=== PATIENT | female | born 1995 | race Caucasian/White ===

== ENCOUNTER 2016-12-07 23:29 | Emergency (ER) | payer SELFPAY ==
[~2016-12-07] VITALS: Ht 162.6 cm; Wt 81.6 kg
[~2016-12-07 23:29] MED LIST: AGM875T PO; CEPH250T PO; CEPH500C PO; CRAN1TAB PO; DCS100C PO; FRS325T PO; HYDR-3454 PO; HYDR-757 PO; HYOS0.3710 PO; IBP800T PO; Ibuprofen PO; LORA10CA PO; NAPR-243 PO; NITR-65 PO; ONDA-43 PO; PREN1COM11 PO; PREN1TAB39 PO; PROP1TAB77 PO; TRAM50TA2 PO
--- OUTSIDE RECORDS SUMMARY | 2016-12-07 23:36 | XMS REPORT | Continuity of Care Document ---
Author Author [facility] Organization [facility] Address Unknown Phone Unavailable Care Team Providers Care Pipe Installer Name Role Phone DODIE MIRANDA MD PCP Insurance Providers Payer Name Policy Number Subscriber Name Relationship Unknown Robin Green 19 Self / Same As Patient Advance Directives Directive Response Recorded Date/Time Advance Directives No 03/29/16 10:22pm Health Care Power of Global Program Director No 03/29/16 10:22pm Organ Donor No 03/29/16 10:22pm Resuscitation Status Full Code 03/29/16 10:22pm Chief Complaint and Reason for Visit Chief Complaint -Female Reason for Visit [id number] test positive Problems Active Problems Medical Problem Onset Date Status Abdominal pain in Unknown Acute Abdominal pain in Unknown Acute Constipation Unknown Acute Fracture of distal fibula Unknown Acute Fracture of distal fibula Unknown Acute Left ankle pain Unknown Acute test positive Unknown Acute UTI Unknown Acute Upper respiratory infection Unknown Acute Urinary tract infection in Unknown Acute Uterine bleeding Unknown Acute Medications No known medications. Social History Social History Problem Response Recorded Date/Time Alcohol Use Denies Use 03/29/2016 10:22pm Recreational Drug Use No 03/29/2016 10:22pm Recent Foreign Travel No 03/18/2014 5:12pm Recent Infectious Disease Exposure No 03/18/2014 5:12pm Hospitalization with Isolation Denies 03/18/2014 5:12pm Sexually Transmitted Disease No 03/29/2016 10:22pm HIV/AIDS No 03/29/2016 10:22pm Smoking Status Never a Smoker 03/29/2016 10:22pm Do you dip or chew tobacco? No 03/29/2016 10:22pm Query Response Start Date Stop Date Smoking Status Never a Smoker Hospital Discharge Instructions No hospital discharge instructions. Plan of Care Discharge Date 03/29/16 11:47pm Disposition 01 HOME, SELF-CARE Condition at Discharge Stable Instructions/Education Provided Threatened Miscarriage (ED) Prescriptions See Medication Section Referrals DODIE MIRANDA MD - Primary Care Physician Additional Instructions/Education See your doctor or return here Wednesday or Wednesday for repeat hCG level. Return sooner for significant abdominal pain, heavy vaginal bleeding, passing out or other worrisome symptoms. All discharge instructions reviewed with patient and/or family. Voiced understanding. Functional Status No functional status results. Allergies, Adverse Reactions, Alerts Allergen Type Severity Reaction Status Last Updated [id number] (GRAPE JUICE) Allergy Mild Active 03/25/09 Immunizations Name Given Type Date of Influenza Vaccine 06/20/12 Historical Tetanus Booster (TDap) Unknown Historical Vital Signs Acute Vital Signs Vital Response Date/Time Temperature (Fahrenheit) 98.2 degrees F (97.6 - 99.5) 03/29/2016 11:47pm Temperature (Calculated Celsius) 36.71752 degrees C (36.4 - 37.5) 03/29/2016 11:47pm Temperature Source Temporal 03/29/2016 11:47pm Pulse Rate (Adolescent 12-19yrs) 87 bpm (56 - 106) 03/29/2016 11:47pm O2 Sat by Pulse Oximetry 98 % (88 - 100) 03/29/2016 11:47pm Respiratory Rate (Adolescent 12-19yrs) 18 bpm (15 - 20) 03/29/2016 11:47pm Blood Pressure / Blood Pressure Systolic (Adolescent 12-19yrs) 108 mm Hg (115 - 120) 2015 11:47pm Pain Numeric Pain Scale 0-No Pain 03/29/2016 11:47pm Height (Feet) 5 feet 03/29/2016 10:22pm Height (Inches) 4 inches 03/29/2016 10:22pm Height (Calculated Centimeters) 162.124812 cm 03/29/2016 10:22pm Weight (Pounds) 196 pounds 03/29/2016 10:22pm Weight (Ounces) 6.0 oz 03/29/2016 10:22pm Weight (Calculated Grams) 93646.203 gm 03/29/2016 10:22pm Weight (Calculated Kilograms) 89.938400 kilograms 03/29/2016 10:22pm Calculated BMI 33.64 03/29/2016 10:22pm Results No known relevant diagnostic tests, laboratory data and/or discharge summary. Procedures No known history of procedures. Encounters Encounter Location Arrival/Admit Date Discharge/Depart Date Attending Provider Departed Emergency Room [facility] 03/29/16 9:59pm 03/29 11:47pm OLGA CALERO MD Recent Diagnosis
[2016-12-07] MEDS ORDERED: FAMOTIDINE 20 MG (PEPCID) TABLET PO STA (23:57)
[2016-12-08] MEDS ORDERED: ANTACID SUSP 30 ML UDC (MYLANTA) PO ONE
[2016-12-08] MEDS ORDERED: LIDOCAINE 2% VISCOUS 15 ML UDC PO ONE
[2016-12-08 00:16] LABS: BASOPHILS % (AUTO) 1 % (0-10); EOSINOPHILS # (AUTO) 0.2 10^3/uL (0.0-0.3); EOSINOPHILS % (AUTO) 2 % (0-10); LYMPHOCYTES % (AUTO) 37 % (12-44); MEAN CORPUSCULAR HEMOGLOBIN 29 PG (25-34); MEAN CORPUSCULAR HGB CONC 33 G/DL (32-36); MEAN CORPUSCULAR VOLUME 87 FL (80-99); MONOCYTES # (AUTO) 0.5 X 10^3 (0.0-1.0); MONOCYTES % (AUTO) 6 % (0-12); NEUTROPHILS # (AUTO) 4.4 X 10^3 (1.8-7.8); NEUTROPHILS % (AUTO) 54 % (42-75); PLATELET COUNT 238 10^3/uL (130-400); RED BLOOD COUNT 3.97 10^6/uL (4.35-5.85); WHITE BLOOD COUNT 8.1 10^3/uL (4.3-11.0)
[2016-12-08 00:42] LABS: ALANINE AMINOTRANSFERASE 12 U/L (0-55); ALBUMIN 3.9 G/DL (3.2-4.5); AMYLASE 66 U/L (25-125); ANION GAP 11 MMOL/L (5-14); ASPARTATE AMINO TRANSFERASE 13 U/L (5-34); BILIRUBIN,TOTAL 0.1 MG/DL (0.1-1.0); BLOOD UREA NITROGEN 21 MG/DL (7-18); BUN/CREATININE RATIO 18; CALCIUM 8.9 MG/DL (8.5-10.1); CARBON DIOXIDE 24 MMOL/L (21-32); CHLORIDE 105 MMOL/L (98-107); CREATININE SERUM 1.15 MG/DL (0.60-1.30); GFR ESTIMATED 60; GLUCOSE 102 MG/DL (70-105); LIPASE 30 U/L (8-78); POTASSIUM 3.5 MMOL/L (3.6-5.0); SODIUM 140 MMOL/L (135-145); TOTAL PROTEIN 6.4 G/DL (6.4-8.2)
[2016-12-08 00:50] LABS: TROPONIN I < 0.30 NG/ML (<0.30)
--- NOTE | 2016-12-08 02:06 | ED GI ---
General Chief Complaint: Cardiac/General Problems Stated Complaint: CHEST PAIN Nursing Triage Note: Pt. advises for several months she has been experiencing burning pain that begins in her stomach and moves up into her chest. Pt. advises she has tried over the counter antacids and has not had any relief. Sepsis Screen: No Definite Risk Source of Information: Patient Exam Limitations: No Limitations History of Present Illness Time Seen By Provider: 01:30 Initial Comments Here with report of central chest pain that starts in the epigastric region and radiates upward as well as radiates backward. States that it feels sharp and burning. It definitely happens with some fluids and sometimes just happens on its own. She has tried [id number] medicines without relief. She has been experiencing this on and off for several months but it seems to be more frequent recently. Denies vomiting or diarrhea but does have some nausea occasionally with these episodes. Timing/Duration: 1 Week, Intermittent Severity/Quality: Moderate, Burning, Sharp Location: Epigastric Radiation: Back, Chest Activities at Onset: None Modifying Factors: Improves With Antacids, Worsens With Eating Associated Symptoms: No Fever/Chills, No Shortness of Air, No Weakness Allergies and Home Medications Allergies Uncoded Allergies: [id number] (GRAPE JUICE) (Allergy, Mild, 03/25/09) Home Medications No Active Prescriptions or Reported Meds Review of Systems Constitutional: see HPINo chills, No fever EENTM: No Symptoms Reported Respiratory: No Symptoms Reported Cardiovascular: See HPI Gastrointestinal: See HPI NauseaDenies Vomiting Genitourinary: No Symptoms Reported Musculoskeletal: no symptoms reported All Other Systems Reviewed Negative Unless Noted: Yes Past Xirppyw-Rnqyga-Quxmly Hx Patient Social History Alcohol Use: Denies Use Recreational Drug Use: No Smoking Status: Never a Smoker Recent Foreign Travel: No Contact w/Someone Who Travel: No Recent Infectious Disease Expo: No Recent Hopitalizations: No Immunizations Up To Date Tetanus Booster (TDap): Unknown Date of Influenza Vaccine: Jun 20, 2012 Seasonal Allergies Seasonal Allergies: No Surgeries HX Surgeries: Yes (EGD, BILAT KNEE SCOPES) Surgeries: Gallbladder, Orthopedic Respiratory Hx Respiratory Disorders: No Cardiovascular Hx Cardiac Disorders: No Neurological Hx Neurological Disorders: No Reproductive System Hx Reproductive Disorders: No Sexually Transmitted Disease: No HIV/AIDS: No Female Reproductive Disorders: Denies Genitourinary Hx Genitourinary Disorders: No Gastrointestinal Hx Gastrointestinal Disorders: Yes Gastrointestinal Disorders: Hiatal Hernia Musculoskeletal Hx Musculoskeletal Disorders: Yes Musculoskeletal Disorders: Fractures Endocrine Hx Endocrine Disorders: No HEENT HX ENT Disorders: No Cancer Hx Cancer: No Psychosocial Hx Psychiatric Problems: No Integumentary HX Skin/Integumentary Disorder: No Blood Transfusions Hx Blood Disorders: No Reviewed Nursing Assessment Reviewed/Agree w Nursing PMH: Yes Family Medical History Significant Family History: No Pertinent Family Hx Family Medial History: Patient reports no known family medical history. Physical Exam Vital Signs VS - Last 72 Hours, by Label 12/07/16 23:46 Temp 98.6 Pulse 98 Resp 14 B/P 122/76 Pulse Ox 98 O2 Delivery Room Air Capillary Refill : Less Than 3 Seconds General Appearance: WD/WN no apparent distress HEENT: PERRL/EOMI pharynx normal Neck: full range of motion supple Respiratory: lungs clear normal breath sounds Cardiovascular: regular rate, rhythm no murmur Gastrointestinal: non tender soft Extremities: non-tender normal inspection Back: normal inspection no CVA tenderness no vertebral tenderness Neurologic/Psychiatric: alert oriented x 3 Skin: normal color warm/dry Focused Exam Lactic Acid Level Laboratory Tests Test 12/08/16 00:08 Alanine Aminotransferase (ALT/SGPT) 12U/L (0-55) Albumin 3.9G/DL (3.2-4.5) Alkaline Phosphatase 40U/L (40-136) Amylase Level 66U/L (25-125) Anion Gap 11MMOL/L (5-14) Aspartate Amino Transf (AST/SGOT) 13U/L (5-34) BUN/Creatinine Ratio 18 Blood Urea Nitrogen 21MG/DL (7-18) H Calcium Level 8.9MG/DL (8.5-10.1) Carbon Dioxide Level 24MMOL/L (21-32) Chloride Level 105MMOL/L (98-107) Creatinine 1.15MG/DL (0.60-1.30) Estimat Glomerular Filtration Rate 60 Glucose Level 102MG/DL (70-105) Lipase 30U/L (8-78) Potassium Level 3.5MMOL/L (3.6-5.0) L Serum Test, Qualitative NEGATIVE (NEGATIVE) Sodium Level 140MMOL/L (135-145) Total Bilirubin 0.1MG/DL (0.1-1.0) Total Protein 6.4G/DL (6.4-8.2) Troponin I < 0.30NG/ML (<0.30) Progress/Results/Core Measures Results/Orders Lab Results Laboratory Tests Test 12/08/16 00:08 Range/Units Alanine Aminotransferase (ALT/SGPT) 12 0-55 U/L Albumin 3.9 3.2-4.5 G/DL Alkaline Phosphatase 40 40-136 U/L Amylase Level 66 25-125 U/L Anion Gap 11 5-14 MMOL/L Aspartate Amino Transf (AST/SGOT) 13 5-34 U/L BUN/Creatinine Ratio 18 Basophils # (Auto) 0.0 0.0-0.1 10^3/uL Basophils (%) (Auto) 1 0-10 % Blood Urea Nitrogen 21 H 7-18 MG/DL Calcium Level 8.9 8.5-10.1 MG/DL Carbon Dioxide Level 24 21-32 MMOL/L Chloride Level 105 98-107 MMOL/L Creatinine 1.15 0.60-1.30 MG/DL Eosinophils # (Auto) 0.2 0.0-0.3 10^3/uL Eosinophils (%) (Auto) 2 0-10 % Estimat Glomerular Filtration Rate 60 Glucose Level 102 70-105 MG/DL Hematocrit 35 35-52 % Hemoglobin 11.6 11.5-16.0 G/DL Lipase 30 8-78 U/L Lymphocytes # (Auto) 3.0 1.0-4.0 X 10^3 Lymphocytes (%) (Auto) 37 12-44 % Mean Corpuscular Hemoglobin 29 25-34 PG Mean Corpuscular Hemoglobin Concent 33 32-36 G/DL Mean Corpuscular Volume 87 80-99 FL Mean Platelet Volume 11.0 H 7.4-10.4 FL Monocytes # (Auto) 0.5 0.0-1.0 X 10^3 Monocytes (%) (Auto) 6 0-12 % Neutrophils # (Auto) 4.4 1.8-7.8 X 10^3 Neutrophils (%) (Auto) 54 42-75 % Platelet Count 238 130-400 10^3/uL Potassium Level 3.5 L 3.6-5.0 MMOL/L Red Blood Count 3.97 L 4.35-5.85 10^6/uL Red Cell Distribution Width 12.0 10.0-14.5 % Serum Test, Qualitative NEGATIVE NEGATIVE Sodium Level 140 135-145 MMOL/L Total Bilirubin 0.1 0.1-1.0 MG/DL Total Protein 6.4 6.4-8.2 G/DL Troponin I < 0.30 <0.30 NG/ML White Blood Count 8.1 4.3-11.0 10^3/uL My Orders Orders-KALYN CEVALLOS MD Amylase (12/07/16 23:57) Cbc With Automated Diff (12/07/16 23:57) Comprehensive Metabolic Panel (12/07/16 23:57) Lipase (12/07/16 23:57) Troponin I (12/07/16 23:57) Lidocaine 2% Viscous 15 Ml (Xylocaine Vi (12/08/16 00:00) Famotidine Tablet (Pepcid Tablet) (12/07/16 23:57) Antacid Suspension (Mylanta Suspension (12/08/16 00:00) Hcg,Qualitative Serum (12/07/16 23:57) Medications Given in ED Current Medications Medications Dose Ordered Sig/Kiarra Route Start Time Stop Time Status Last Admin Dose Admin Al Hydrox/Mg Hydrox/Simethicone 30 ml ONCE ONCE PO 12/08/16 00:00 12/08/16 00:01 DC 12/08/16 00:09 30 ML Lidocaine HCl 15 ml ONCE ONCE PO 12/08/16 00:00 12/08/16 00:01 DC 12/08/16 00:09 15 ML Vital Signs/I&O Vital Sign - Last 12Hours 12/07/16 23:46 Temp 98.6 Pulse 98 Resp 14 B/P 122/76 Pulse Ox 98 O2 Delivery Room Air Blood Pressure Mean: 91 Progress Note : Progress Note Seen and evaluated. Labs and EKG ordered. Pepcid 20 mg by mouth and GI cocktail given. This did resolve her pain completely. No acute findings. Discharged home with return precautions. Patient verbalize understanding instructions and agreement with plan. ECG Initial ECG Impression Date: Dec 07, 2016 Initial ECG Impression Time: 23:52 Initial ECG Rate: 90 Initial ECG Rhythm: Normal Sinus Initial ECG Comparisson: No Previous ECG Available Comment Sinus rhythm with normal axis. No evidence of ST elevation AK. No previous available for comparison. Interpreted by me. Departure Impression Impression: Primary Impression: Gastroesophageal reflux disease Qualified Code: K21.9 - Gastro-esophageal reflux disease without esophagitis Disposition: 01 HOME, SELF-CARE Condition: Improved Departure-Patient Inst. Decision time for Depature: 02:04 Referrals: DODIE MIRANDA MD (PCP/Family) Primary Care Physician Patient Instructions: Acid Reflux (Gastroesophageal Reflux Disease), Adult (DC) , Chest Pain (DC) Add. Discharge Instructions: All discharge instructions reviewed with patient and/or family. Voiced understanding. You may take omeprazole 20 mg daily for 14 days. You may purchases over-the- counter in a 14 day pack. You may repeat this 2 more times as needed. You should wait 1 week between each 14 day pack. Follow-up with your doctor for recheck and further evaluation. Return for worse pain, fever, vomiting, weakness, breathing problems or other concerns as needed. Scripts No Active Prescriptions or Reported Meds Copy Copies To 1: DODIE MIRANDA MD, TIMOTHY D MD Dec 08, 2016 02:06
[2016-12-08 02:11] VITALS: BP 108/63
== END 2016-12-08 02:08 | disposition home or self-care (01) ==
LOC: EDUNIT# 23:29 → ER 23:33
DX: K21.9 Gastro-esophageal reflux disease without esophagitis (principal)
CPT/HCPCS: 36415; 80053; 82150; 83690; 84484; 84703; 85025; 93005

== ENCOUNTER → 2017-03-06 | Emergency (ER) | payer SELFPAY ==
[~2017-03-06] VITALS: Ht 167.6 cm; Wt 72.6 kg
--- NOTE | 2017-03-06 20:37 | ED GU-Female ---
General Chief Complaint: -Female Stated Complaint: POSS PG ANTIBODIES ISSUE Nursing Triage Note: Pt states took preg test approx 3 hours ago, pt verbalized she had miscarriage approx 1 yr ago and was told to go to physician for "shot" since she doesn't have a medical card Nursing Sepsis Screen: No Definite Risk Source: patient History of Present Illness Time seen by provider: 20:20 Initial Comments PT STATES SHE IS HERE "TO CONFIRM " SO SHE CAN GET BACK ON MEDICAID PT'S LMP WAS 02/06/17 AND WAS NORMAL. NO CONTROL HAD + HOME TESTS X 2 TONIGHT AT 1700 AND 1840 PT STATES SHE WAS TOLD IF SHE GOT AGAIN SHE SHOULD "IMMEDIATELY GET CHECKED FOR ANTIBODIES" AFTER SHE HAD A MISCARRIAGE A YEAR AGO AT 6 WEEKS--PT'S BLOOD TYPE IS B NEGATIVE PER OLD RECORDS PT IS AB 1--NO D&C REQUIRED PT IS NOT HAVING ANY SYMPTOMS--INITIALLY DENIED HAVING ANY PROBLEMS AT ALL, THEN LATER STATES SHE "SPOTTED ONCE" EARLIER TODAY--BLOOD ON TISSUE WITH WIPING , AND HAD A SMALL CLOT, BUT HAS NOT HAD ANY SINCE THEN. DID NOT USE ANY PADS NO PAIN PCP: DR. MIRANDA Allergies and Home Medications Allergies Uncoded Allergies: [id number] (GRAPE JUICE) (Allergy, Mild, 03/25/09) Home Medications No Active Prescriptions or Reported Meds Constitutional: no symptoms reported Respiratory: no symptoms reported Cardiovascular: no symptoms reported Gastrointestinal: no symptoms reported Genitourinary: see HPI LMP: February 06, 2017 Musculoskeletal: no symptoms reported Skin: no symptoms reported Psychiatric/Neurological: No Symptoms Reported Endocrine: No Symptoms Reported Hematologic/Lymphatic: No Symptoms Reported Past Gxwwnrp-Gosshk-Wwlwfd Hx Patient Social History Alcohol Use: Denies Use Recreational Drug Use: No Smoking Status: Never a Smoker Recent Foreign Travel: No Contact w/Someone Who Travel: No Recent Infectious Disease Expo: No Recent Hopitalizations: No Immunizations Up To Date Tetanus Booster (TDap): Unknown Date of Influenza Vaccine: Jun 20, 2012 Seasonal Allergies Seasonal Allergies: No Surgeries HX Surgeries: Yes (EGD, BILAT KNEE SCOPES) Surgeries: Gallbladder, Orthopedic Respiratory Hx Respiratory Disorders: No Cardiovascular Hx Cardiac Disorders: No Neurological Hx Neurological Disorders: No Reproductive System Hx : 4 Hx Para: 2 Hx Total # of Abortions (Spona: 1 Hx Reproductive Disorders: No Sexually Transmitted Disease: No HIV/AIDS: No Female Reproductive Disorders: Denies Genitourinary Hx Genitourinary Disorders: No Gastrointestinal Hx Gastrointestinal Disorders: Yes Gastrointestinal Disorders: Hiatal Hernia Musculoskeletal Hx Musculoskeletal Disorders: Yes Musculoskeletal Disorders: Fractures Endocrine Hx Endocrine Disorders: No HEENT HX ENT Disorders: No Cancer Hx Cancer: No Psychosocial Hx Psychiatric Problems: No Integumentary HX Skin/Integumentary Disorder: No Blood Transfusions Hx Blood Disorders: No Family Medical History Family Medial History: Patient reports no known family medical history. 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 nml as tested, no motor/sensory deficits, alert, normal mood/affect, oriented x 3 Skin: normal color, warm/dry Progress/Results/Core Measures Results/Orders Lab Results Laboratory Tests Test 03/06/17 20:47 Range/Units Human Chorionic Gonadotropin, Quant 507 H <5 MIU/ML My Orders Orders - STEFANY MARQUEZ DO Hcg,Quantitative (03/06/17 20:31) Rh Immune Globulin (03/06/17 21:34) Rhogam Administration (03/06/17 21:34) Vital Signs/I&O Vital Sign - Last 12Hours 03/06/17 03/06/17 20:02 22:23 Temp 97.9 97.9 Pulse 72 72 Resp 20 20 B/P (MAP) 116/72 Pulse Ox 98 98 O2 Delivery Room Air Blood Pressure Mean: 87 Departure Impression Impression: Primary Impression: Rh negative status during in first trimester Additional Impression: Spotting affecting in first trimester Disposition: 01 HOME, SELF-CARE Condition: Stable Departure-Patient Inst. Referrals: DODIE MIRANDA MD (PCP/Family) Primary Care Physician Patient Instructions: Bleeding With (DC), How to Plan and Prepare for a Healthy , in Rh-Negative Women, SPOTTING IN EARLY Add. Discharge Instructions: OVER THE COUNTER VITAMINS LOTS OF CLEAR LIQUIDS KEEP AN ACCURATE PAD COUNT--RETURN TO ER IF SOAKING MORE THAN 2 MAXI PADS AN HOUR FOR MORE THAN 2 [address]LLOW UP WITH DR. MIRANDA NEXT WEEK FOR FURTHER CARE All discharge instructions reviewed with patient and/or family. Voiced understanding. Scripts No Active Prescriptions or Reported Meds STEFANY MARQUEZ DO Mar 06, 2017 20:37
[2017-03-06 22:23] VITALS: BP 116/72
== END | disposition home or self-care (01) ==
LOC: EDUNIT# 19:48 → ER 19:53
DX: O26.851 Spotting complicating pregnancy, first trimester (principal); O26.891 Other specified pregnancy related conditions, first trimester; Z87.59 Personal history of other complications of pregnancy, childbirth and the puerperium
CPT/HCPCS: 36415; 84702; 96372; 99282

== ENCOUNTER → 2017-03-30 | Outpatient (CLI) | payer MEDICAID ==
--- NOTE | 2017-03-30 13:15 | Diagnostic Imaging Report ---
First trimester OB ultrasound. INDICATION: Dating. FINDINGS: There is a normal-appearing single intrauterine . An embryo is seen with cardiac activity at 155 beats per minute. The crown-rump length is at 7 weeks and 5 days. FRITZ is 11/11/17. The left ovary is obscured by bowel gas. The right ovary is the 3.1 x 2.5 x 1.5 CM in size and appears unremarkable.. IMPRESSION: Live single intrauterine . Dictated by: Dictated on workstation # [id number]
== END ==
LOC: RAD 12:33
PROVIDERS: ATTEND Family Medicine
DX: Z36 Encounter for antenatal screening of mother (principal); Z3A.01 Less than 8 weeks gestation of pregnancy
CPT/HCPCS: 76801

== ENCOUNTER → 2017-06-29 | Outpatient (CLI) | payer MEDICAID ==
--- NOTE | 2017-06-29 11:41 | Diagnostic Imaging Report ---
INDICATION: survey. TECHNIQUE: Multiple real-time grayscale images were obtained over the gravid uterus. COMPARISON: 03/30/2017 FINDINGS: There is a single living intrauterine in a cephalic presentation. There is normal volume of the amniotic fluid. Placenta is anterior. There is no previa. The anatomical survey is unremarkable. The heart rate is 140 beats per minute and regular. The biometry correlates with gestational age of 21 weeks one day. IMPRESSION: 1. Single living intrauterine with sonographically estimated gestational age of 21 weeks 1 day and estimated date of confinement 11/08/2017. 2. The anatomical survey was unremarkable. Cord insertion however was not well seen due to position. Biometrical measurements are as follows: Biparietal 4.9 cm, age 21 weeks 0 days. Head circumference 18.6 cm, age 21 weeks 0 days. Abdominal circumference 15.8 cm, age 21 weeks 0 days. Femur length 3.5 cm, age 21 weeks 1 days. Sonographic estimate age: 21 weeks 1 days. Sonographic estimated date of delivery: 11/08/16. Estimated Weight: 390 gm (+/- 57 gm). LMP percentile: 60%. heart rate: 140 beats per minute. number: 1 of 1. Dictated by: Dictated on workstation # [id number]
== END ==
LOC: RAD 09:28
PROVIDERS: ATTEND Family Medicine
DX: Z36.87 Encounter for antenatal screening for uncertain dates (principal); Z3A.21 21 weeks gestation of pregnancy
CPT/HCPCS: 76805

== ENCOUNTER 2017-10-13 13:14 | Outpatient (CLI) | payer MEDICAID ==
[~2017-10-13] VITALS: Ht 162.6 cm; Wt 90.7 kg
[2017-10-13 13:27] VITALS: BP 115/61
[2017-10-13] MEDS ORDERED: PREN1TAB86 PO (14:19)
[2017-10-13 14:28] VITALS: BP 108/58
[2017-10-13] MEDS ORDERED: LACTATED RINGERS 1,000 ML IV ONE (14:30)
[2017-10-13 15:53] VITALS: BP 110/69
[2017-10-13] MEDS ORDERED: TERBUTALINE INJ 1 MG/ML (BRETHINE) AMP SC ONE (16:30)
[2017-10-13 17:35] VITALS: BP 115/65
[2017-10-13 18:35] VITALS: BP 115/65
[2017-10-13] MEDS ORDERED: INFLUENZA TRIvalent 2017-2018 0.5 ML/45 MCG SYR IM ONE (20:15)
--- NOTE | 2017-10-14 08:34 | Physician Query-Final Dx ---
EVER TRAN 10/14/17 0833: Clinic Account Progress/Dx Physician Query: Please give diagnosis Date of Service Oct 13, 2017 at 13:14 DODIE MIRANDA MD 10/18/17 0716: Clinic Account Progress/Dx DIAGNOSIS: Diagnosis 1. Uterine irritability, non-labor 2. IUP at 35 weeks EVER TRAN Oct 14, 2017 08:33 DODIE MIRANDA MD Oct 18, 2017 07:16
== END 2017-10-13 18:35 | disposition home or self-care (01) ==
LOC: WSo 13:14 → LDRP 13:15 → WSo 18:35
PROVIDERS: ATTEND Family Medicine
DX: O62.4 Hypertonic, incoordinate, and prolonged uterine contractions (principal); Z3A.35 35 weeks gestation of pregnancy
CPT/HCPCS: 87070; 96360; 96361; 96372; 99214

== ENCOUNTER 2017-10-15 12:43 | Outpatient (CLI) | payer MEDICAID ==
[~2017-10-15 12:43] MED LIST changes: +PREN1TAB86 PO
--- NOTE | 2017-10-18 14:10 | Physician Query-Final Dx ---
CRISTHIAN TRINH 10/18/17 1409: Clinic Account Progress/Dx Physician Query: Please give diagnosis Date of Service Oct 15, 2017 at 12:43 DODIE MIRANDA MD 10/26/17 0736: Clinic Account Progress/Dx DIAGNOSIS: Diagnosis 1. IUP in 3rd trimester 2. Rh negative CRISTHIAN TRINH Oct 18, 2017 14:09 DODIE MIRANDA MD Oct 26, 2017 07:36
== END 2017-10-15 13:46 | disposition home or self-care (01) ==
LOC: WSo 12:43
PROVIDERS: ATTEND Family Medicine
DX: O36.0130 Maternal care for anti-D [Rh] antibodies, third trimester, not applicable or unspecified (principal)
CPT/HCPCS: 96372

== ENCOUNTER 2017-10-27 15:47 | Outpatient (CLI) | payer MEDICAID ==
[~2017-10-27] VITALS: Ht 162.6 cm; Wt 93.0 kg
[2017-10-27 16:05] VITALS: BP 120/64
[2017-10-27] MEDS ORDERED: INFLUENZA TRIvalent 2017-2018 0.5 ML/45 MCG SYR IM ONE (16:45)
--- NOTE | 2017-11-05 17:46 | Physician Query-Final Dx ---
EVER TRAN 11/05/17 1746: Clinic Account Progress/Dx Physician Query: Please give diagnosis Date of Service Oct 27, 2017 at 15:47 DODIE MIRANDA MD 11/08/17 0714: Clinic Account Progress/Dx DIAGNOSIS: Diagnosis 1. Uterine irritability, non labor 2. IUP at 37 weeks EVER TRAN Nov 05, 2017 17:46 DODIE MIRANDA MD Nov 08, 2017 07:14
== END 2017-10-27 16:40 | disposition home or self-care (01) ==
LOC: WSo 15:47 → LDRP 15:49 → WSo 16:40
PROVIDERS: ATTEND Family Medicine
DX: O99.89 Other specified diseases and conditions complicating pregnancy, childbirth and the puerperium (principal); N85.9 Noninflammatory disorder of uterus, unspecified; Z3A.37 37 weeks gestation of pregnancy
CPT/HCPCS: 99213

== ENCOUNTER 2017-11-03 23:44 | Inpatient (IN) | payer MEDICAID ==
[~2017-11-03] VITALS: Ht 162.6 cm; Wt 94.8 kg
[2017-11-04] VITALS (30 sets, daily range): BP systolic 100–127; BP diastolic 55–72
[2017-11-04] MEDS ORDERED: AMPICILLIN INJECTION 2,000 MG in NS (IVPB) 50 ML IV SCH (00:02)
[2017-11-04] MEDS ORDERED: ZOLPIDEM 5 MG (AMBIEN) TAB PO PRN (00:15)
[2017-11-04] MEDS ORDERED: DINOPROSTONE 10 MG (CERVIDIL) INSERT PV ONE (00:15)
[2017-11-04] MEDS ORDERED: BUTORPHANOL INJ 2 MG/ML (STADOL) VIAL IV PRN (00:30)
[2017-11-04 00:31] LABS: BASOPHILS % (AUTO) 0 % (0-10); EOSINOPHILS # (AUTO) 0.1 10^3/uL (0.0-0.3); EOSINOPHILS % (AUTO) 1 % (0-10); HEMATOCRIT 31 % (35-52); HEMOGLOBIN 10.3 G/DL (11.5-16.0); LYMPHOCYTES % (AUTO) 19 % (12-44); MEAN CORPUSCULAR HEMOGLOBIN 28 PG (25-34); MEAN CORPUSCULAR HGB CONC 33 G/DL (32-36); MEAN CORPUSCULAR VOLUME 85 FL (80-99); MEAN PLATELET VOLUME 10.6 FL (7.4-10.4); MONOCYTES # (AUTO) 0.8 X 10^3 (0.0-1.0); MONOCYTES % (AUTO) 8 % (0-12); NEUTROPHILS # (AUTO) 7.6 X 10^3 (1.8-7.8); NEUTROPHILS % (AUTO) 73 % (42-75); PLATELET COUNT 276 10^3/uL (130-400); RED BLOOD COUNT 3.67 10^6/uL (4.35-5.85); RED CELL DISTRIBUTION WIDTH 13.3 % (10.0-14.5); WHITE BLOOD COUNT 10.5 10^3/uL (4.3-11.0)
[2017-11-04] MEDS: D5 LR IV SOLUTION 1,000 ML IV SCH ×2 (00:33→09:30)
[2017-11-04] MEDS ORDERED: CATHETER FLUSH 10 ML SYR IV SCH ×2 (06:00→14:00)
[2017-11-04] MEDS: AMPICILLIN INJECTION 1,000 MG in NS (IVPB) 50 ML IV SCH ×2 (07:16→11:30)
[2017-11-04] MEDS ORDERED: INFLUENZA TRIvalent 2017-2018 0.5 ML/45 MCG SYR IM ONE (07:30)
[2017-11-04] MEDS ORDERED: OXYTOCIN/NORMAL SALINE 500 ML IV ONE (08:06)
[2017-11-04] MEDS ORDERED: OXYTOCIN/NORMAL SALINE 500 ML IV SCH ×2 (08:06→12:40)
--- NOTE | 2017-11-04 08:19 | History & Physical-OB ---
OB - Chief Complaint & HPI Date/Time Date of Admission: Date of Admission: Nov 03, 2017 at 23:44 Time Seen by Provider: 07:30 Chief Complaint/History OB-Reason for Admission/Chief: Induction of Labor Hx : 3 Hx Para: 2 Expected Date of Delivery: Nov 11, 2017 Gestational Age in Weeks: 39 Gestational Age in Days: 0 Admission Nurse Assessment Rev: Yes History of Labs GBS negative Allergies and Home Medications Allergies Uncoded Allergies: [id number] (GRAPE JUICE) (Allergy, Mild, 03/25/09) Home Medications Vit W-Ca,Fe,FA(<1 mg) 1 Each Tablet, 1 EACH PO DAILY, (Reported) OB - History Hx of Present Care: Yes Ultrasounds: Normal mid trimester US Obstetrical Complications: None Medical Complications: None Obstetrical History Hx Termination: No Hx Multiple Gestation: No Hx Stillbirth: No Hx Complication: No Hx Induced Hypertens: No Hx Maternal Gestational Diabet: No Delivery History Hx Dystocia: No Hx Large For Gestational Age I: No Hx Small for Gestational Age I: No Hx Section: No Hx Vaginal Delivery Post C-Sec: No Hx Blood Disorders: No Patient Past Medical History no chronic medical problems Social History/Family History HIV/AIDS: No Recent Infectious Disease Expo: No Sexually Transmitted Disease: No Alcohol Use: Denies Use Recreational Drug Use: No Immunizations Tetanus Booster (TDap): Unknown Date of Influenza Vaccine: Jun 20, 2012 OB - Admission Exam Physical Exam Vitals: Vital Signs 11/04/17 01:00 Temp 97.5 Pulse 101 Resp 18 B/P (MAP) 114/62 (79) O2 Delivery Room Air HEENT: Moist Membranes Heart: Rhythm Normal Lungs: Clear Abdomen: Soft Cervical Dilatation: 2cm Effacement: 50% Station: -2 Membranes: Intact Heart Rate: 140's Accelerations: Accelerations Present Decelerations: No Decelerations Short Term Variability: Present Custodial Variability: Average (6-25) Contractions on Admission: >10 Minutes Apart Intensity: Mild Alston Scoring Tool (Modified) Dilation (cm): 1-2cm (1) Effacement (%): 31-51% (1) Descent/Station: -2 (1) Cervix Consistency: Medium(1) Cervix Position: Middle/Mid-Position (1) Add 1 point for: Each previous vaginal delivery (1) Alston Score: 7 Labs Laboratory Tests Test 11/04/17 00:10 Range/Units White Blood Count 10.5 4.3-11.0 10^3/uL Red Blood Count 3.67 L 4.35-5.85 10^6/uL Hemoglobin 10.3 L 11.5-16.0 G/DL Hematocrit 31 L 35-52 % Mean Corpuscular Volume 85 80-99 FL Mean Corpuscular Hemoglobin 28 25-34 PG Mean Corpuscular Hemoglobin Concent 33 32-36 G/DL Red Cell Distribution Width 13.3 10.0-14.5 % Platelet Count 276 130-400 10^3/uL Mean Platelet Volume 10.6 H 7.4-10.4 FL Neutrophils (%) (Auto) 73 42-75 % Lymphocytes (%) (Auto) 19 12-44 % Monocytes (%) (Auto) 8 0-12 % Eosinophils (%) (Auto) 1 0-10 % Basophils (%) (Auto) 0 0-10 % Neutrophils # (Auto) 7.6 1.8-7.8 X 10^3 Lymphocytes # (Auto) 2.0 1.0-4.0 X 10^3 Monocytes # (Auto) 0.8 0.0-1.0 X 10^3 Eosinophils # (Auto) 0.1 0.0-0.3 10^3/uL Basophils # (Auto) 0.0 0.0-0.1 10^3/uL OB - Assessment/Plan/Diagnosis Assessment Assessment: induction of labor Plan Plan: Induction (by cervidil) Other Plan AROM Patient doesn't desire epidural to be adopted DODIE MIRANDA MD Nov 04, 2017 08:19
--- NOTE | 2017-11-04 12:39 | OB Labor & Delivery Record ---
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 Variability: Average (6-10) Short Term Variability: Present Presentation: Vertex Vital Signs VS - Last 72 Hours, by Label 11/04/17 11/04/17 11/04/17 11/04/17 00:12 01:00 07:31 08:15 Temp 97.5 97.2 Pulse 86 101 94 97 Resp 18 18 18 18 B/P (MAP) 110/57 (74) 114/62 (79) 116/67 (83) 112/58 (76) O2 Delivery Room Air Room Air Room Air Room Air 11/04/17 11/04/17 11/04/17 11/04/17 08:30 08:45 09:00 09:15 Pulse 84 80 82 83 Resp 18 18 18 18 B/P (MAP) 110/63 (79) 109/62 (78) 108/61 (77) 111/67 (82) O2 Delivery Room Air Room Air Room Air Room Air 11/04/17 11/04/17 11/04/17 11/04/17 09:30 09:45 10:00 10:15 Pulse 78 72 82 88 Resp 18 18 18 18 B/P (MAP) 107/62 (77) 107/60 (76) 118/72 (87) 113/63 (80) O2 Delivery Room Air Room Air Room Air Room Air 11/04/17 11/04/17 11/04/17 11/04/17 10:30 10:45 11:00 11:15 Pulse 82 85 78 77 Resp 18 18 18 18 B/P (MAP) 111/62 (78) 110/66 (81) 113/55 (74) 116/69 (85) O2 Delivery Room Air Room Air Room Air Room Air Signs of Distress by FHT Signs of Distress no Rupture of Membranes Spontaneous Ruture of Membrane: No Amniotic Membrane Rupture Time: 0732 Amniotic Membrane Fluid Desc.: Clear L&D Stage2 Stage Two Stage II Date: Nov 04, 2017 Stage II Time: 12:26 Monitors and Tracing Monitor Mode: Internal Heart Rate: 135 Monitor Accelerations: Uniform Monitor Decelerations: None Mcfp Variability: Average (6-10) Short Term Variability: Present Position: Left Occiput Anterior Presentation: Vertex Signs of Distress by FHT Signs of Distress no Cord Descript/Complications Cord Vessel Description: 3 Vessels Delivery Type Infant Delivery Method: Spontaneous Vaginal Episiotomy/Perineal Laceration Laceraction(s)/Extensions: No Condition of Infant Delivery 1 minute Comment: 8 5 minute Comment: 9 Condition of Condition of : Living Exam: No Observed Abnormalities Resuscitation Resuscitation: N/A - Spontaneous Resp L&D Stage3 Stage Three Stage III Date: Nov 04, 2017 Stage III Time: 12:29 Pictocin Pitocin Administration mu/min: 10 Pitocin ml/hr: 10 Pitocin Administration Comment: pitocin increased Placenta Delivery Placenta Delivery: Spontaneous Delivery Summary Summary Estimated blood loss (mL): 150 Condition of Delivery Examined: Cervix Examined Post Hemorrhage: No DODIE MIRANDA MD Nov 04, 2017 12:39
[2017-11-04] MEDS ORDERED: MEASLES,MUMPS,RUBELLA 1 EA INJ SQ ONE (12:45)
[2017-11-04] MEDS ORDERED: HYDROcodone/APAP 5 MG/325 MG (LORTAB) TAB PO PRN (12:45)
[2017-11-04] MEDS ORDERED: BENZOCAINE/MENTHOL (DERMOPLAST) 56 ML CAN TP PRN (12:45)
[2017-11-04] MEDS ORDERED: TETANUS,DIPTH,PERTUSS P/F (BOOSTRIX) 0.5 ML VIAL IM ONE (12:45)
[2017-11-04] MEDS ORDERED: WITCH HAZEL(TUCKS) 40 EA JAR TOP PRN (12:45)
[2017-11-04] MEDS ORDERED: METHYLERGONOVINE 0.2 MG (MEHTERGINE) TAB PO ONE (14:16)
[2017-11-04] MEDS: IBUPROFEN 600 MG (MOTRIN) TAB PO SCH ×2 (14:17→20:19)
[2017-11-04] MEDS: METHYLERGONOVINE 0.2 MG (MEHTERGINE) TAB PO SCH (20:19)
[2017-11-05 00:49] VITALS: BP 104/63
[2017-11-05] MEDS: IBUPROFEN 600 MG (MOTRIN) TAB PO SCH ×2 (02:20→08:54)
[2017-11-05] MEDS: METHYLERGONOVINE 0.2 MG (MEHTERGINE) TAB PO SCH (02:21)
[2017-11-05 04:00] VITALS: BP 88/54
[2017-11-05 05:23] LABS: BASOPHILS % (AUTO) 0 % (0-10); EOSINOPHILS # (AUTO) 0.1 10^3/uL (0.0-0.3); EOSINOPHILS % (AUTO) 1 % (0-10); HEMATOCRIT 32 % (35-52); HEMOGLOBIN 10.5 G/DL (11.5-16.0); LYMPHOCYTES % (AUTO) 16 % (12-44); MEAN CORPUSCULAR HEMOGLOBIN 28 PG (25-34); MEAN CORPUSCULAR HGB CONC 33 G/DL (32-36); MEAN CORPUSCULAR VOLUME 85 FL (80-99); MEAN PLATELET VOLUME 10.6 FL (7.4-10.4); MONOCYTES # (AUTO) 0.8 X 10^3 (0.0-1.0); MONOCYTES % (AUTO) 6 % (0-12); NEUTROPHILS # (AUTO) 9.5 X 10^3 (1.8-7.8); NEUTROPHILS % (AUTO) 77 % (42-75); PLATELET COUNT 244 10^3/uL (130-400); RED BLOOD COUNT 3.78 10^6/uL (4.35-5.85); RED CELL DISTRIBUTION WIDTH 13.3 % (10.0-14.5); WHITE BLOOD COUNT 12.4 10^3/uL (4.3-11.0)
[2017-11-05] MEDS ORDERED: PRENATAL VITAMIN 1 EA TAB PO SCH (07:00)
--- NOTE | 2017-11-05 07:58 | Discharge Summary ---
Diagnosis/Chief Complaint Date of Admission Nov 03, 2017 at 23:44 Date of Discharge November 05, 2017 Discharge Date: Nov 05, 2017 Discharge Time: 07:55 Admission Diagnosis Admission Diagnosis 1. Intrauterine at 39 weeks gestation Discharge Diagnosis 1. Intrauterine at 39 weeks gestation Reason Hospital Visit 22-year-old 3 now term 3 female who initially presented to labor and delivery at 39 weeks gestation for induction of labor. Patient had uneventful care course. Her EDC was listed as November 10, 2017. She was admitted for induction of labor with Cervidil at midnight or essentially the early a.m. of November 04, 2017 Discharge Summary-OBS Procedures 1. Spontaneous vaginal delivery Discharge Physical Examination Allergies: Uncoded Allergies: [id number] (GRAPE JUICE) (Allergy, Mild, 03/25/09) Vitals & I&Os Vital Signs Date Time Temp Pulse Resp B/P (MAP) Pulse Ox O2 Delivery O2 Flow Rate FiO2 11/05/17 04:00 96.9 71 18 88/54 (65) 96 Room Air General Appearance: No Acute Distress HEENT: Mucous Memb Moist/[place] Respiratory: Normal Air Movement Abdominal: Normal Bowel Sounds, Soft Extremities: No Edema Hospital Course Patient was admitted and underwent Cervidil ripening during the artificial teeth inspector of November 04, 2017. She tolerated Cervidil well and was noted to have contraction pattern. She underwent amniotomy at 07 32 on November 04, 2017. Patient continued to contract requiring low-dose Pitocin augmentation. She eventually went on to completion and delivered a term viable female at 1226 on November 04, 2017. Infant received Apgars of 8 at 1 minute and 9 at 5 minutes. There was no episiotomy and she had no perineal lacerations. Following delivery she underwent routine care orders. She was noted to have no complications during the remainder of hospital stay. She was felt ready for dismissal during the morning of November 05, 2017. Her hemoglobin was stable at 10.5. All questions answered. At the time of this dictation the paperwork for adoption is pending. Pending Labs Laboratory Tests 11/05/17 05:15: White Blood Count 12.4, Red Blood Count 3.78, Hemoglobin 10.5, Hematocrit 32, Mean Corpuscular Volume 85, Mean Corpuscular Hemoglobin 28, Mean Corpuscular Hemoglobin Concent 33, Red Cell Distribution Width 13.3, Platelet Count 244, Mean Platelet Volume 10.6, Neutrophils (%) (Auto) 77, Lymphocytes (%) (Auto) 16 , Monocytes (%) (Auto) 6, Eosinophils (%) (Auto) 1, Basophils (%) (Auto) 0, Neutrophils # (Auto) 9.5, Lymphocytes # (Auto) 2.0, Monocytes # (Auto) 0.8, Eosinophils # (Auto) 0.1, Basophils # (Auto) 0.0 Discharge Instructions to patient/family Please see electronic discharge instructions given to patient. Discharge Medications Reviewed and agree with Discharge Medication list on patient's Discharge Instruction sheet Clinical Quality Measures DVT/VTE Risk/Contraindication: Risk Factor Score Per Nursin RFS Level Per Nursing on Admit: 1=Low/No VTE PPX DODIE MIRANDA MD Nov 05, 2017 07:58
--- NOTE | 2017-11-05 08:00 | Discharge Inst-Women's Service ---
Discharge Inst-Women's Serv Depart Medication/Instructions New, Converted or Re-Newed RX: Other (No prescriptions called in) Instructions May utilize [id number] ibuprofen 2 or 3 tablets every 6 hours as needed for uterine cramping. Consults/Follow Up Additional Follow Up: Yes (With Dr. Morrell in 6 weeks.hn ) Activity Activity: Activity as Tolerated Driving Instructions: You May Drive Nothing Inside Vagina: No [place] (For 6 weeks) Diet Discharge Diet: Regular Diet Return to The Hospital For: As below Symptoms to Report to : Bleeding Excessive, Pain Increased, Fever Over 101 Degrees F, Vaginal Discharge Foul For Any Problems or Questions: Contact Your Physician DODIE MIRANDA MD Nov 05, 2017 08:00
[2017-11-05 08:54] VITALS: BP 108/74
--- OUTSIDE RECORDS SUMMARY | 2017-11-05 09:47 | XMS REPORT | Clinical Summary ---
Author Author [facility] Address Unknown Phone Unavailable Care Team Providers Care Sr. Unix System Administrator Name Role Phone Sameer Berman MD PP Allergies Not on File Current Medications Not on file Active Problems Not on file Social History Tobacco Use Types Packs/Day Years Used Date Never Assessed Sex Assigned at Date Recorded Not on file Plan of Treatment Health Maintenance Due Date Last Done Comments HPV Vaccines (1 of 3 - 2007 Female 3 Dose Series) Varicella Vaccines (1 of 2009 2 - 2 Dose Adolescent Series) MenB Vaccine (Bexsero) (1 2012 of 2) DTaP,Tdap,and Td Vaccines 2015 (1 - Tdap) CERVICAL CANCER SCREENING 2017 Influenza Vaccine (#1) 2017 Results Not on filefrom Last 3 Months
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
== END 2017-11-05 10:42 | disposition home or self-care (01) | DRG 775 ==
LOC: LDRP 23:44
PROVIDERS: ADMIT Family Medicine; ATTEND Family Medicine
PROC: 10E0XZZ Delivery of Products of Conception, External Approach (ICD-10-PCS; principal; 2017-11-04)
PROC: 3E0P7GC Introduction of Other Therapeutic Substance into Female Reproductive, Via Natural or Artificial Opening (ICD-10-PCS; 2017-11-04)
DX: O80 Encounter for full-term uncomplicated delivery (principal); Z3A.39 39 weeks gestation of pregnancy; Z37.0 Single live birth
CPT/HCPCS: 36415; 83033; 85025; 86850; 86870; 86900; 86901

== ENCOUNTER → 2018-04-07 | Outpatient (CLI) | payer MEDICAID ==
--- NOTE | 2018-04-07 14:19 | Diagnostic Imaging Report ---
PROCEDURE: US OB SINGLE FETUS <14 WKS. TECHNIQUE: Multiple real-time grayscale images were obtained over the gravid uterus in various projections. INDICATION: dating. FINDINGS: There is an intrauterine gestational sac containing a pole. Blacktail-rump length measurement is 3.0 cm consistent with 10 weeks 0 days gestation. heart rate is recorded at 169 beats per minute. No perigestational sac hemorrhage is seen. Gestational sac size is within normal limits. Right ovary is unremarkable. Left ovary is not visualized. No adnexal mass or free fluid is seen. IMPRESSION: Single live IUP of 10 weeks 0 days gestational age. The estimated date of confinement sonographically is 11/03/2018. Dictated by: Dictated on workstation # [id number]
== END ==
LOC: RAD 12:36
PROVIDERS: ATTEND Family Medicine
DX: Z36.89 Encounter for other specified antenatal screening (principal); Z3A.10 10 weeks gestation of pregnancy
CPT/HCPCS: 76801

== ENCOUNTER → 2018-06-13 | Outpatient (CLI) | payer MEDICAID ==
--- NOTE | 2018-06-13 16:04 | Diagnostic Imaging Report ---
INDICATION: patient, survey. TECHNIQUE: Multiple real-time grayscale images were obtained over the gravid uterus. COMPARISON: 04/07/2018. FINDINGS: A single live intrauterine fetus is seen measuring 19 weeks 5 days in size with normal interval growth compared to the prior study. Sonographic EDC is 11/02/2018. The fetus is in breech presentation at this time. Amniotic fluid is qualitatively normal. The placenta is anterior and overlies the cervical os, compatible with low-lying placenta or previa. This situation may change later in , followup is recommended. heart rate was 150 beats per minute. survey demonstrates normal-appearing kidneys, bladder, stomach, and intracranial ventricles. Four-chamber heart view is unremarkable. Three-vessel cord and cord insertion appeared normal. spine could not be evaluated due to the position. Cervical length was 7.6 cm. Biometrical measurements are as follows: Biparietal 4.26 cm, age 19 weeks 0 days. Head circumference 16.57 cm, age 19 weeks 2 days. Abdominal circumference 15.20 cm, age 20 weeks 3 days. Femur length 3.15 cm, age 19 weeks 6 days. Sonographic estimate age: 19 weeks 5 days. Sonographic estimated date of delivery: 11/02/18. Estimated Weight: 326 gm (+/- 48 gm). LMP percentile: 70%. heart rate: 150 beats per minute. number: 1 of 1. IMPRESSION: Single live intrauterine fetus measuring 19 weeks 5 days in size with normal interval growth compared to the prior study. Possible low-lying placenta or previa is noted, recommend followup later in to determine if this resolves. survey showed no detectable abnormalities, although spine was not well seen, consider limited repeat study to evaluate the placenta and spine as clinically warranted. Dictated by: Dictated on workstation # [id number]
== END ==
LOC: RAD 09:42
PROVIDERS: ATTEND Family Medicine
DX: Z36.89 Encounter for other specified antenatal screening (principal); Z3A.19 19 weeks gestation of pregnancy
CPT/HCPCS: 76805

== ENCOUNTER → 2018-07-28 | Outpatient (CLI) | payer MEDICAID ==
--- NOTE | 2018-07-28 16:15 | Diagnostic Imaging Report ---
INDICATION: survey followup TECHNIQUE: Multiple real-time grayscale images were obtained over the gravid uterus. COMPARISON: None 04/07/2018 and 06/13/2018 FINDINGS: The previous exam of 06/13/2018 noted a single live fetus approximately 19 weeks 5 days gestation. There were no abnormalities identified although the spine was not well visualized. The placenta was anterior and low-lying. On this exam the fetus is again visualized. The fetus is in transverse presentation with head on maternal right. heart motion was noted at a rate of 149 bpm recorded. There are no abnormalities identified. In particular, the spine was imaged and seems to be within normal limits. The placenta is anterior but there is no evidence for previa. Amniotic fluid volume is within normal limits. The cervix was identified and measures 4 cm in length. The growth perimeters are not obtained for this study. IMPRESSION: 1. There is a single live fetus in transverse presentation. 2. There were no abnormalities identified. In particular, the spine appears to be within normal limits. 3. The placenta is anterior but there is no evidence for previa. Biometrical measurements are as follows: Biparietal cm, age weeks days. Head circumference cm, age weeks days. Abdominal circumference cm, age weeks days. Femur length cm, age weeks days. Sonographic estimate age: weeks days. Sonographic estimated date of delivery: . Estimated Weight: gm (+/- gm). LMP percentile: %. heart rate: beats per minute. number: of . Dictated by: Dictated on workstation # [id number]
== END ==
LOC: RAD 10:02
PROVIDERS: ATTEND Family Medicine
DX: Z36.89 Encounter for other specified antenatal screening (principal); Z3A.19 19 weeks gestation of pregnancy
CPT/HCPCS: 76816

== ENCOUNTER → 2018-07-28 | Outpatient (CLI) | payer MEDICAID | LOC: WSo 11:07 | PROVIDERS: ATTEND Family Medicine | DX: Z31.82 Encounter for Rh incompatibility status (principal) | CPT/HCPCS: 96372 ==

== ENCOUNTER 2018-08-27 21:14 | Outpatient (CLI) | payer MEDICAID ==
[~2018-08-27] VITALS: Ht 162.6 cm; Wt 89.1 kg
[2018-08-27 21:30] VITALS: BP 120/58
[2018-08-27 21:40] LABS: BILIRUBIN,URINE NEGATIVE (NEGATIVE); CLARITY,URINE CLEAR; COLOR,URINE YELLOW; GLUCOSE, URINE (UA) NEGATIVE (NEGATIVE); KETONES,URINE NEGATIVE (NEGATIVE); LEUKOCYTE ESTERASE ,URINE 2+ (NEGATIVE); NITRITE,URINE NEGATIVE (NEGATIVE); PH,URINE 7 (5-9); PROTEIN,URINE NEGATIVE (NEGATIVE); UROBILINOGEN,URINE NORMAL (NORMAL)
[2018-08-27] MEDS ORDERED: FERR-84 PO (21:51)
== END 2018-08-27 22:05 | disposition home or self-care (01) ==
LOC: WSo 21:14 → LDRP 21:19 → WSo 22:05
PROVIDERS: ATTEND Family Medicine
DX: O36.8190 Decreased fetal movements, unspecified trimester, not applicable or unspecified (principal)
CPT/HCPCS: 81000; 99212

== ENCOUNTER 2018-10-17 20:32 | Emergency (ER) | payer MEDICAID ==
[~2018-10-17] VITALS: Ht 162.6 cm; Wt 91.6 kg
[~2018-10-17 20:32] MED LIST changes: +FERR-84 PO
--- OUTSIDE RECORDS SUMMARY | 2018-10-17 20:37 | XMS REPORT ---
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 Active 4954704789513 Problem Need for prophylactic vaccination and inoculation, Influenza V04.81 Active 048767760 Problem Screening examination for venereal disease V74.5 Active 340965718 Problem Other general counseling and advice for contraceptive management V25.09 Active 658240693 Problem General counseling for initiation of other contraceptive measures V25.02 Active [id number] Problem General counseling for prescription of oral contraceptives V25.01 Active 728517467196346 Problem Missed period N92.6 Active 20131485 Problem Pityriasis versicolor 111.0 Active 77322726 Problem Costochondritis 733.6 Active 24730839 Problem Supervision of normal first V22.0 Active 708194985 Problem Rhesus isoimmunization affecting management of mother, 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 [id number] [id number] Mar, [facility] [address] [facility] [id number], [place] [address] Feb, Missed period N92.6 [facility] [address] [id number] [address] Feb, Missed period N92.6 [facility] [address] [facility] [id number], [place] [address] Dec, [facility] [place] [facility] [address] [id number] [place] [address] 13 Dec, 2014 [facility] [place] [facility] [address] [id number] [place] [address] Jun, [facility] [place] [facility] [address] [id number] [place] [address] Jun, [facility] [place] [facility] [address] [id number] [place] [address] 18 May, 2013 [facility] [place] [facility] [address] [id number] [place] [address] January, [facility] [place] [facility] [address] [id number] [place] [address] Dec, [facility] [place] [facility] [address] [id number] [place] [address] Dec, [facility] [place] [facility] [address] [id number] [place] [address] Nov, [facility] [place] [facility] [address] [id number] [place] [address] Sep, [facility] [place] [facility] [address] [id number] [place] [address] 16 Jul, 2012 [facility] [place] [facility] [address] [id number] [place] [address] 16 Jul, 2012 [facility] [place] [facility] [address] [id number] [place] [address] 16 Jun, 2012 [facility] [place] [facility] [address] [id number] [place] 16 Jun, 2012 [facility] [place] [facility] [address] [id number] [place] [address] Jun, [facility] [place] [facility] [address] [id number] [place] [address] 26 May, 2012 [facility] [place] [facility] [address] [id number] [place] [address] Apr, [facility] [place] [facility] [address] [id number] [place] [address] Apr, [facility] [place] [facility] [address] [id number] [place] [address] Mar, [facility] [place] [facility] [address] [id number] [place] [address] Mar, [facility] [place] [facility] [address] [id number] [place] [address] Mar, [facility] [place] [facility] [address] [id number] [place] [address] Mar, [facility] [place] [facility] [address] [id number] [place] [address] Mar, [facility] [place] [facility] [address] [id number] [place] [address] Mar, [facility] [place] [facility] [address] [id number] [place] [address] Mar, [facility] [place] [facility] [address] [id number] [place] [address] Feb, [facility] [place] [facility] [address] [id number] [place] [address] Feb, [facility] [place] [facility] [address] [id number] [place] [address] January, [facility] [place] [facility] [address] [id number] [place] [address] January, [facility] [place] [facility] [address] [id number] [place] [address] January, [facility] [place] [facility] [address] [id number] [place] [address] Dec, [facility] [place] [facility] [address] [id number] [place] [address] Dec, [facility] [place] [facility] [address] [address] Nov, [facility] [address], [place] [address] Oct, [facility] [address], [place] [address] Oct, [facility] [id number] [place] [address] Oct, [facility] [id number] [place] [address] Oct, [facility] [id number] [place] [address] Sep, [facility] [address] [id number], [place] [address] Sep, [facility] [id number] [place] [address] Sep, [facility] [address], [place] [address] Sep, [facility] [address] [id number], [place] [address] Aug, [facility] [address], [place] [address] Jun, IMMUNIZATIONS No Known Immunizations SOCIAL HISTORY Never Assessed REASON FOR VISIT test per pts request. adolfo, last menstural period was 2017. EDC 11/01/2018, pt is G4, T3, P3, A0, L3....pt has given vaginally 3 times. 2 children live with her. one child was given up for adoption., wants to doctor with [facility] PLAN OF CARE VITAL SIGNS MEDICATIONS Medication Instructions Dosage Frequency Start Date End Date Duration Status 28-0.8 MG Orally Once a day 1 tablet 24h Active Loratadine 10 mg 1 tablet by Oral route 1 time per day Jun, Not-Taking RESULTS Name Result Date Reference Range TEST, URINE (IN HOUSE) 2018-02-27 RESULTS positive Lot # [id number] Control + Exp date 2018 PROCEDURES Procedure Date Ordered Result Body Site URINE TEST February 27, 2018 INSTRUCTIONS MEDICATIONS ADMINISTERED No Known Medications
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
--- NOTE | 2018-10-17 21:00 | NUR ---
Pt reports last taking tylenol at 1100.
--- NOTE | 2018-10-17 21:04 | NUR ---
heart tones 137
[2018-10-17] MEDS ORDERED: RX-OSELTAMIVIR 75 MG (TAMIFLU) BOX OF 10 PO STA (22:37)
--- NOTE | 2018-10-17 22:47 | ED Cough/URI ---
General Chief Complaint: Cough/Cold/Flu Symptoms Stated Complaint: COUGH,CONGESTION,FEVER Nursing Triage Note: pt arrived pov with parent with c/o cough, congestion and fever of 100.1. Pt is 37 weeks and 4 days. Source: patient History of Present Illness Date Seen by Provider: Oct 17, 2018 Time Seen by Provider: 21:35 Initial Comments PT ARRIVES VIA POV FROM HOME C/O COUGH AND CONGESTION STATES SHE STARTED HAVING A SLIGHTLY SCRATCHY THROAT WEDNESDAY NIGHT BEGAN HAVING COUGHAND RUNNY NOSE ON WEDNESDAY ALSO BEGAN RUNNING A FEVER ON WEDNESDAY, HAS BEEN HIGH 100.3 NO CHEST PAIN NO SHORTNESS OF BREATH C/O MILD HEADACHE C/O MILD BODY ACHES PT STATES SHE IS 37 WEEKS GESTATION--LAST OB VISIT 10/13/18. NEXT APPOINTMENT IS THIS Wednesday10/20/18 PT HAS NOT TAKEN ANYTHING FOR SYMPTOMS AT ANY TIME SYMPTOMS NO DIFFERENT TONIGHT IN ANY WAY HAS NOT SOUGHT CARE UNTIL TONIGHT PT STATES DAUGHTER HAS SAME SYMPTOMS, HAS NOT SOUGHT CARE. PCP: DR. MIRANDA Allergies and Home Medications Allergies Uncoded Allergies: [id number] (GRAPE JUICE) (Allergy, Mild, 03/25/09) Home Medications Vit W-Ca,Fe,FA(<1 mg) 1 Each Tablet, 1 EACH PO DAILY, (Reported) Patient Home Medication List Home Medication List Reviewed: Yes Review of Systems Review of Systems Constitutional: see HPI, fever EENTM: see HPI, nose congestion Respiratory: see HPI, cough; No phlegm, No short of breath, No wheezing Cardiovascular: no symptoms reported; No chest pain Gastrointestinal: no symptoms reported; No abdominal pain Genitourinary: no symptoms reported; No decreased output : Yes Musculoskeletal: see HPI (MILD BODY ACHES) Skin: no symptoms reported; No rash Psychiatric/Neurological: See HPI, Headache (MILD HEADACHE) Hematologic/Lymphatic: No Symptoms Reported Immunological/Allergic: no symptoms reported Past Tukiroh-Hqbzex-Caudmv Hx Patient Social History Alcohol Use: Denies Use Recreational Drug Use: No Smoking Status: Never a Smoker 2nd Hand Smoke Exposure: Yes Recent Foreign Travel: No Contact w/Someone Who Travel: No Recent Infectious Disease Expo: No Recent Hopitalizations: No Physical Abuse: No Sexual Abuse: No Immunizations Up To Date Tetanus Booster (TDap): Unknown Date of Influenza Vaccine: Jun 20, 2018 Seasonal Allergies Seasonal Allergies: Yes Past Medical History Surgeries: Yes (EGD, BILAT KNEE SCOPES) Gallbladder, Orthopedic Respiratory: No Cardiac: No Neurological: No Hx : 2 Hx Para: 1 Hx Total # of Abortions (Sp): 0 Reproductive Disorders: No Female Reproductive Disorders: Denies 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 Physical Exam Vital Signs - First Documented 10/17/18 20:41 Temp 100.1 Pulse 113 Resp 0 B/P (MAP) 99/60 (73) Pulse Ox 100 O2 Delivery Room Air Capillary Refill : Less Than 3 Seconds Height: 5'4.00" Weight: 202lbs. 6.0oz. 91.029254nl; 33.7 BMI Method:Stated General Appearance: WD/WN, no apparent distress, other (SMILING, PT PLAYING/ TEXTING ON 2 DIFFERENT CELL PHONES) HEENT: PERRL/EOMI, TMs normal, pharynx normal, other (SLIGHT NASAL MUCOSAL EDEMA AND CLEAR RHINORRHEA) Neck: normal inspection Respiratory: normal breath sounds, no respiratory distress, no accessory muscle use Cardiovascular: regular rate, rhythm, no murmur Gastrointestinal: non tender, other (GRAVID UTERUS, NON-TENDER. 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, no motor/sensory deficits, alert, normal mood/affect, oriented x 3 Skin: normal color, warm/dry Progress/Results/Core Measures Suspected Sepsis Recent Fever Within 48 Hours: Yes Infection Criteria Present: Suspected New Infection New/Unexplained Altered Menta: No Sepsis Screen: Possible Sepsis Risk SIRS Temperature:100.1 Pulse: 113 Respiratory Rate: 0 Blood Pressure 99 /60 Mean: 73 Results/Orders Micro Results Microbiology 10/17/18 Influenza Types A,B Antigen (ADITI) - Final, Complete My Orders Orders - STEFANY MARQUEZ DO Influenza A And B Antigens (10/17/18 21:39) Heart Tones (10/17/18 21:47) Rx-Oseltamivir Caps (Rx-Tamiflu Caps) (10/17/18 22:37) Vital Signs/I&O 10/17/18 10/17/18 10/17/18 20:41 20:45 23:27 Temp 100.1 99.9 Pulse 113 96 Resp 0 22 B/P (MAP) 99/60 (73) 118/64 (82) Pulse Ox 100 97 O2 Delivery Room Air Room Air Room Air Capillary Refill : Less Than 3 Seconds Blood Pressure Mean: 73 Progress Note : Progress Note NO COUGH AT ANY TIME DURING ER STAY Departure Impression Primary Impression: Influenza-like symptoms Additional Impression: 37 weeks gestation of Disposition: HOME, SELF-CARE Condition: Stable Departure-Patient Inst. Referrals: DODIE MIRANDA MD (PCP/Family) Primary Care Physician Patient Instructions: Flu, Adult (DC), Bacterial Upper Respiratory Infection, Adult (DC) Add. Discharge Instructions: LOTS OF CLEAR LIQUIDS TAKE TAMIFLU TWICE A DAY FOR 5 DAYS TYLENOL NEEDED FOR PAIN OR FEVER FLONASE FOR NASAL CONGESTION FOLLOW UP WITH DR. MIRANDA IN 2-3 DAYS IF NO BETTER All discharge instructions reviewed with patient and/or family. Voiced understanding. STEFANY MARQUEZ DO Oct 17, 2018 22:47
[2018-10-17 23:27] VITALS: BP 118/64
== END 2018-10-17 23:27 | disposition home or self-care (01) ==
LOC: EDUNIT# 20:32 → ER 20:33
DX: O26.893 Other specified pregnancy related conditions, third trimester (principal); R05 Cough; R09.81 Nasal congestion; R50.9 Fever, unspecified; R51 Headache; R52 Pain, unspecified; Z77.22 Contact with and (suspected) exposure to environmental tobacco smoke (acute) (chronic); Z98.890 Other specified postprocedural states; Z3A.37 37 weeks gestation of pregnancy
CPT/HCPCS: 87804

== ENCOUNTER 2018-10-27 05:51 | Inpatient (IN) | payer MEDICAID ==
[~2018-10-27] VITALS: Ht 162.6 cm; Wt 93.6 kg
[2018-10-27] VITALS (39 sets, daily range): BP systolic 109–138; BP diastolic 56–77
--- NOTE | 2018-10-27 05:58 | NUR ---
ROBIN BAKER presented to unit via ambulatory from ED, accompanied by s.o., with IOL. ROBIN BAKER weighed, gowned, voided, and to bed. EFHM and TOCO applied, VS taken. ROBIN BAKER oriented to bed controls, call light, TV, heat, and A/C controls.
[2018-10-27] MEDS ORDERED: D5 LR IV SOLUTION 1,000 ML IV SCH (06:08)
[2018-10-27] MEDS ORDERED: D5 LR IV SOLUTION 1,000 ML IV ONE (06:08)
[2018-10-27] MEDS ORDERED: OXYTOCIN/NORMAL SALINE 500 ML IV SCH ×3 (06:08→14:10)
[2018-10-27] MEDS ORDERED: MINERAL OIL CONCENTRATE 99.9% 15 ML UDC TOP PRN (06:15)
[2018-10-27 06:40] LABS: BASOPHILS % (AUTO) 0 % (0-10); EOSINOPHILS # (AUTO) 0.1 10^3/uL (0.0-0.3); EOSINOPHILS % (AUTO) 2 % (0-10); HEMATOCRIT 30 % (35-52); HEMOGLOBIN 9.6 G/DL (11.5-16.0); LYMPHOCYTES # (AUTO) 1.8 X 10^3 (1.0-4.0); LYMPHOCYTES % (AUTO) 24 % (12-44); MEAN CORPUSCULAR HEMOGLOBIN 27 PG (25-34); MEAN CORPUSCULAR HGB CONC 32 G/DL (32-36); MEAN CORPUSCULAR VOLUME 86 FL (80-99); MEAN PLATELET VOLUME 9.8 FL (7.4-10.4); MONOCYTES # (AUTO) 0.5 X 10^3 (0.0-1.0); MONOCYTES % (AUTO) 7 % (0-12); NEUTROPHILS # (AUTO) 4.9 X 10^3 (1.8-7.8); NEUTROPHILS % (AUTO) 67 % (42-75); PLATELET COUNT 323 10^3/uL (130-400); RED CELL DISTRIBUTION WIDTH 15.3 % (10.0-14.5); WHITE BLOOD COUNT 7.4 10^3/uL (4.3-11.0)
--- NOTE | 2018-10-27 07:11 | History & Physical-OB ---
OB - Chief Complaint & HPI Date/Time Date of Admission: Date of Admission: Oct 27, 2018 at 05:51 Date seen by a Provider: Oct 27, 2018 Time Seen by a Provider: 06:55 Chief Complaint/History OB-Reason for Admission/Chief: Induction of Labor Hx : 5 Hx Para: 3 Expected Date of Delivery: Nov 02, 2018 Gestational Age in Weeks: 39 Gestational Age in Days: 0 History of Labs GBS negative Allergies and Home Medications Allergies Coded Allergies: No Known Drug Allergies (Unverified , 10/27/18) Home Medications Vit W-Ca,Fe,FA(<1 mg) 1 Each Tablet, 1 EACH PO DAILY, (Reported) Patient Home Medication List Home Medication List Reviewed: Yes OB - History Hx of Present Care: Yes Ultrasounds: Normal mid trimester US Obstetrical Complications: None Medical Complications: None Obstetrical History Hx Termination: No Hx Multiple Gestation: No Hx Stillbirth: No Hx Complication: No Hx Induced Hypertens: No Hx Maternal Gestational Diabet: No Delivery History Hx Dystocia: No Hx Large For Gestational Age I: No Hx Small for Gestational Age I: No Hx Section: No Hx Vaginal Delivery Post C-Sec: No Hx Blood Disorders: No Patient Past Medical History no chronic medical problems Social History/Family History HIV/AIDS: No Sexually Transmitted Disease: No 2nd Hand Smoke Exposure: Yes Immunizations Tetanus Booster (TDap): Unknown Date of Influenza Vaccine: Jun 20, 2018 OB - Admission Exam Physical Exam HEENT: Moist Membranes Heart: Rhythm Normal Lungs: Clear Abdomen: Gravid Extremities: Normal Cervical Dilatation: 1cm Effacement: 50% Station: -3 Membranes: Intact Heart Rate: 140's Accelerations: Accelerations Present Decelerations: No Decelerations Short Term Variability: Present 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 (6-25) Contractions on Admission: >10 Minutes Apart Intensity: Mild Alston Scoring Tool (Modified) Dilation (cm): 1-2cm (1) Effacement (%): 31-51% (1) Descent/Station: -3 (0) Cervix Consistency: Medium(1) Cervix Position: Middle/Mid-Position (1) Add 1 point for: Each previous vaginal delivery (1) Alston Score: 7 Labs Laboratory Tests Test 10/27/18 06:21 Range/Units White Blood Count 7.4 4.3-11.0 10^3/uL Red Blood Count 3.50 L 4.35-5.85 10^6/uL Hemoglobin 9.6 L 11.5-16.0 G/DL Hematocrit 30 L 35-52 % Mean Corpuscular Volume 86 80-99 FL Mean Corpuscular Hemoglobin 27 25-34 PG Mean Corpuscular Hemoglobin Concent 32 32-36 G/DL Red Cell Distribution Width 15.3 H 10.0-14.5 % Platelet Count 323 130-400 10^3/uL Mean Platelet Volume 9.8 7.4-10.4 FL Neutrophils (%) (Auto) 67 42-75 % Lymphocytes (%) (Auto) 24 12-44 % Monocytes (%) (Auto) 7 0-12 % Eosinophils (%) (Auto) 2 0-10 % Basophils (%) (Auto) 0 0-10 % Neutrophils # (Auto) 4.9 1.8-7.8 X 10^3 Lymphocytes # (Auto) 1.8 1.0-4.0 X 10^3 Monocytes # (Auto) 0.5 0.0-1.0 X 10^3 Eosinophils # (Auto) 0.1 0.0-0.3 10^3/uL Basophils # (Auto) 0.0 0.0-0.1 10^3/uL OB - Assessment/Plan/Diagnosis Assessment Assessment: induction of labor Admission Dx 1. IUP at 39 weeks Admission Status: Inpatient Order (span 2 midnights) Reason for Inpatient Admission: L&D Plan Plan: Induction Induction Method: DODIE SANDERS MD Oct 27, 2018 07:10
[2018-10-27] MEDS ORDERED: ERYTHROMYCIN OPHTH OINT 1 GM (SINGLE USE) TUBE ONE (10:07)
[2018-10-27] MEDS ORDERED: PHYTONADIONE (VIT. K) NEONATAL 1 MG/0.5 ML AMP ONE (10:07)
[2018-10-27] MEDS ORDERED: PETROLATUM JELLY(VASELINE) 2.5 OZ TUBE ONE (10:07)
--- NOTE | 2018-10-27 10:55 | NUR ---
was called. update given on pitocin infusion and SVE. no new orders received @ time.
[2018-10-27] MEDS ORDERED: BUTORPHANOL INJ 2 MG/ML (STADOL) VIAL ONE (12:36)
[2018-10-27] MEDS ORDERED: FLU QUADRIvalent (5+ YOA) 2018-2019 (AFLURIA) 0.5 ML IM ONE (12:45)
[2018-10-27] MEDS ORDERED: BUTORPHANOL INJ 2 MG/ML (STADOL) VIAL IV ONE (12:45)
[2018-10-27] MEDS ORDERED: NALOXONE 0.4 MG/ML 1 ML (NARCAN) VIAL ONE (13:08)
[2018-10-27] MEDS ORDERED: CATHETER FLUSH 10 ML SYR IV SCH ×2 (14:00→22:00)
--- NOTE | 2018-10-27 14:10 | OB Labor & Delivery Record ---
L&D History Date of Service Date of Service: Oct 27, 2018 History Expected Date of Delivery: Nov 02, 2018 Gestational Age in Weeks: 39 Hx : 5 Hx Para: 3 Complications Events: Routine care Operative Indications (Cesarea: N/A-Vaginal Delivery Intrapartal Events: None L&D Stage1 Stage One Onset of Labor - Date: Oct 27, 2018 Onset of Labor - Time: 06:55 Monitors and Tracing Monitor Mode: Internal Heart Rate: 130 Monitor Accelerations: Uniform Monitor Decelerations: None Station: -1 Mcfp Variability: Average (6-10) Short Term Variability: Present Presentation: Vertex Vital Signs VS - Last 72 Hours, by Label 10/27/18 10/27/18 10/27/18 10/27/18 06:15 07:50 08:05 08:20 Temp 97.8 97.9 Pulse 117 86 87 82 Resp 18 18 18 18 B/P (MAP) 109/65 (80) 119/66 (83) 119/68 (85) 112/64 (80) O2 Delivery Room Air Room Air Room Air Room Air 10/27/18 10/27/18 10/27/18 10/27/18 08:35 08:50 09:05 09:20 Pulse 82 88 88 77 Resp 18 18 18 18 B/P (MAP) 112/64 (80) 117/68 (84) 115/69 (84) 118/70 (86) O2 Delivery Room Air Room Air Room Air Room Air 10/27/18 10/27/18 10/27/18 10/27/18 09:35 09:50 10:05 10:20 Pulse 85 93 83 85 Resp 18 18 18 18 B/P (MAP) 120/71 (87) 114/70 (85) 121/71 (88) 120/74 (89) O2 Delivery Room Air Room Air Room Air Room Air 10/27/18 10/27/18 10/27/18 10/27/18 10:35 10:50 11:05 11:20 Pulse 81 85 93 88 Resp 18 18 18 18 B/P (MAP) 125/77 (93) 125/77 (93) 120/74 (89) 126/75 (92) O2 Delivery Room Air Room Air Room Air Room Air 10/27/18 10/27/18 10/27/1810/27/19 11:35 11:50 12:05 12:20 Pulse 90 102 92 101 Resp 18 18 18 18 B/P (MAP) 121/69 (86) 133/76 (95) 126/70 (88) 116/68 (84) O2 Delivery Room Air Room Air Room Air Room Air 10/27/18 10/27/18 10/27/18 12:35 12:50 13:05 Pulse 93 93 101 Resp 18 18 18 B/P (MAP) 116/68 (84) 116/68 (84) 115/71 (86) O2 Delivery Room Air Room Air Room Air Signs of Distress by FHT Signs of Distress no Rupture of Membranes Spontaneous Ruture of Membrane: No Amniotic Membrane Rupture Time: 0658 Amniotic Membrane Fluid Desc.: Clear Vaginal Bleeding Description: None Induction/Anesthesia Medications Stadol 1mg x 1 dose L&D Stage2 Stage Two Stage II Date: Oct 27, 2018 Stage II Time: 13:57 Monitors and Tracing Monitor Mode: Internal Heart Rate: 130 Monitor Accelerations: Uniform Monitor Decelerations: None Waiter/Waitress Room Service Variability: Average (6-10) Short Term Variability: Present Position: Left Occiput Anterior Presentation: Vertex Signs of Distress by FHT Signs of Distress no Cord Descript/Complications Cord Vessel Description: 3 Vessels Delivery Type Infant Delivery Method: Spontaneous Vaginal Anterior Shoulder: Left Episiotomy/Perineal Laceration Laceraction(s)/Extensions: No Condition of Delivery 1 minute Comment: 8 5 minute Comment: 9 Condition of Condition of : Living Exam: No Observed Abnormalities Resuscitation Resuscitation: N/A - Spontaneous Resp L&D Stage3 Stage Three Stage III Date: Oct 27, 2018 Stage III Time: 14:00 Pictocin Pitocin Administration mu/min: 18 Pitocin ml/hr: 18 Pitocin Administration Comment: piocin increased per protocol Placenta Delivery Placenta Delivery: Spontaneous Delivery Summary Summary Estimated blood loss (mL): 200 Condition of Delivery Examined: Cervix Examined Post Hemorrhage: No Intervention Required none DODIE MIRANDA MD Oct 27, 2018 14:10
[2018-10-27] MEDS ORDERED: BENZOCAINE/MENTHOL (DERMOPLAST) 56 ML CAN TP PRN (14:15)
[2018-10-27] MEDS ORDERED: HYDROcodone/APAP 5 MG/325 MG (LORTAB) TAB PO PRN (14:15)
[2018-10-27] MEDS ORDERED: WITCH HAZEL(TUCKS) 40 EA JAR TOP PRN (14:15)
[2018-10-27] MEDS ORDERED: TETANUS,DIPTH,PERTUSS P/F (BOOSTRIX) 0.5 ML VIAL IM ONE (14:15)
[2018-10-27] MEDS ORDERED: MEASLES,MUMPS,RUBELLA 1 EA INJ SQ ONE (14:15)
--- NOTE | 2018-10-27 14:55 | NUR ---
ffU/1. no clots expressed. in arms.
--- NOTE | 2018-10-27 15:23 | NUR ---
report given to MAYRA Arce.
[2018-10-27] MEDS: IBUPROFEN 600 MG (MOTRIN) TAB PO SCH ×2 (20:23→20:24)
[2018-10-28] VITALS: BP 119/77
[2018-10-28 03:42] VITALS: BP 100/60
[2018-10-28] MEDS: IBUPROFEN 600 MG (MOTRIN) TAB PO SCH ×3 (03:42→15:52)
[2018-10-28] MEDS ORDERED: PRENATAL VITAMIN 1 EA TAB PO SCH (07:00)
--- NOTE | 2018-10-28 07:41 | Discharge Summary ---
Diagnosis/Chief Complaint Date of Admission Oct 27, 2018 at 05:51 Date of Discharge Oct 28, 2018 Discharge Date: Oct 28, 2018 Discharge Time: 16:00 Admission Diagnosis Admission Diagnosis 1. IUP at term 39 weeks Discharge Diagnosis 1. IUP at term 39 weeks Reason Hospital Visit 23 yo G5 now T4 A1 who initially presented in the am of 10/27/18 for induction of labor at 39 weeks. Her due date was noted to be November 03, 2018. She had essentially an unremarkable course. Discharge Summary-OBS Procedures 1. Discharge Physical Examination Allergies: Coded Allergies: No Known Drug Allergies (Unverified , 10/27/18) Vitals & I&Os Vital Signs Date Time Temp Pulse Resp B/P (MAP) Pulse Ox O2 Delivery O2 Flow Rate FiO2 10/28/18 03:42 98.0 72 18 100/60 (73) 96 Room Air General Appearance: No Acute Distress Respiratory: Clear to Auscultation Cardiovascular: Regular Rate Abdominal: Soft (with uterus firm) Hospital Course Patient was admitted in the morning of October 27, 2018 with plans for having amniotomy and labor course There is she underwent amniotomy with placement of scalp electrode. The amniotic fluid was noted to be clear. She continued to contract requiring dose and augmentation. Ultimately she went on to deliver a term viable female with Apgars of 8 at 1 minute and 9 at 5 minutes. She delivered over an intact perineum. Following delivery patient underwent routine care orders In the morning of October 28, 2018 she was noted to have a hemoglobin of 9.2 compared to her admission 9.6 hemoglobin. She was without any lightheadedness. She did not complain of any chest pain, shortness of breath or leg pain. She tolerated regular diet and was felt ready for dismissal during the afternoon of October 28. Patient required ibuprofen for uterine cramping. She will follow-up in [address] Miranda Discharge Instructions to patient/family Please see electronic discharge instructions given to patient. Discharge Medications Reviewed and agree with Discharge Medication list on patient's Discharge Instruction sheet Clinical Quality Measures DVT/VTE Risk/Contraindication: Risk Factor Score Per Nursin RFS Level Per Nursing on Admit: 1=Low/No VTE PPX DODIE MIRANDA MD Oct 28, 2018 07:41
[2018-10-28] MEDS ORDERED: IBUP-844 PO (07:43)
--- NOTE | 2018-10-28 07:45 | Discharge Inst-Nursery ---
Discharge Inst-Nursery Instructions/Follow Up Patient Instructions/Follow Up: Dr Miranda in 1 week Activity Avoid ALL Tobacco Products: Second Hand Smoke Diet Pediatric Feeding Method: Bottle Pediatric Feeding Formula Type: Similac Symptoms Report to Physician Return to The Hospital For: Fever > 100.5, poor feeding or poor urine output Parent Questions Call: Call your physician For Problems/Questions: Contact Your Physician DODIE MIRANDA MD Oct 28, 2018 07:45
--- NOTE | 2018-10-28 07:47 | Discharge Inst-Women's Service ---
Discharge Inst-Women's Serv Depart Medication/Instructions New, Converted or Re-Newed RX: Transmitted to Pharmacy Consults/Follow Up Additional Follow Up: Yes (Dr Miranda in 6 weeks.) Activity Driving Instructions: You May Drive Nothing Inside Vagina: No [place] (for 6 weeks.) Diet Discharge Diet: Regular Diet Return to The Hospital For: as below Symptoms to Report to : Bleeding Excessive, Fever Over 101 Degrees F, Vaginal Discharge Foul For Any Problems or Questions: Contact Your Physician DODIE MIRANDA MD Oct 28, 2018 07:47
[2018-10-28] MEDS ORDERED: PRENATAL VIT W CA FE FA PO SCH (09:00)
[2018-10-28] MEDS ORDERED: [UNRECOGNIZED DRUG - OTHER] PO SCH (09:00)
[2018-10-28 09:05] VITALS: BP 103/56
[2018-10-28] MEDS ORDERED: FLU QUADRIvalent (5+ YOA) 2018-2019 (AFLURIA) 0.5 ML IM ONE (14:01)
[2018-10-28] MEDS ORDERED: TETANUS,DIPTH,PERTUSS P/F (BOOSTRIX) 0.5 ML VIAL IM ONE (14:02)
[2018-10-28 14:06] LABS: BASOPHILS % (AUTO) 0 % (0-10); EOSINOPHILS # (AUTO) 0.1 10^3/uL (0.0-0.3); EOSINOPHILS % (AUTO) 1 % (0-10); HEMATOCRIT 29 % (35-52); HEMOGLOBIN 9.2 G/DL (11.5-16.0); LYMPHOCYTES # (AUTO) 1.8 X 10^3 (1.0-4.0); LYMPHOCYTES % (AUTO) 20 % (12-44); MEAN CORPUSCULAR HEMOGLOBIN 28 PG (25-34); MEAN CORPUSCULAR HGB CONC 32 G/DL (32-36); MEAN CORPUSCULAR VOLUME 87 FL (80-99); MEAN PLATELET VOLUME 9.5 FL (7.4-10.4); MONOCYTES # (AUTO) 0.5 X 10^3 (0.0-1.0); MONOCYTES % (AUTO) 5 % (0-12); NEUTROPHILS # (AUTO) 6.7 X 10^3 (1.8-7.8); NEUTROPHILS % (AUTO) 74 % (42-75); PLATELET COUNT 291 10^3/uL (130-400); RED CELL DISTRIBUTION WIDTH 15.1 % (10.0-14.5); WHITE BLOOD COUNT 9.1 10^3/uL (4.3-11.0)
[2018-10-28 15:51] VITALS: BP 107/67
--- NOTE | 2018-10-28 17:25 | NUR ---
Discharge instructions explained, signed and copy to pt. pt verbalized understanding of instructions and denied questions.
--- NOTE | 2018-10-28 17:40 | NUR ---
Discharged to home. Ambulates self downstairs to private vehicle with belongings in hand. Accompanied by staff.
== END 2018-10-28 17:40 | disposition home or self-care (01) | DRG 807 ==
LOC: LDRP 05:51
PROVIDERS: ADMIT Family Medicine; ATTEND Family Medicine
PROC: 10E0XZZ Delivery of Products of Conception, External Approach (ICD-10-PCS; principal; 2018-10-27)
DX: O80 Encounter for full-term uncomplicated delivery (principal); Z3A.39 39 weeks gestation of pregnancy; Z37.0 Single live birth
CPT/HCPCS: 36415; 83033; 85025; 86850; 86900; 86901; 90471; 90686; 90715

== ENCOUNTER 2018-11-21 22:02 | Emergency (ER) | payer MEDICAID ==
[~2018-11-21] VITALS: Ht 162.6 cm; Wt 80.3 kg
[~2018-11-21 22:02] MED LIST changes: +IBUP-844 PO
--- NOTE | 2018-11-21 22:42 | ED Cough/URI ---
General Stated Complaint: FEVER Source: patient, family Exam Limitations: no limitations History of Present Illness Date Seen by Provider: Nov 21, 2018 Time Seen by Provider: 22:30 Initial Comments The patient presents to the ER with her family and chief complaint that she today started having a sore raspy throat, subjective fever and chills and an occasional cough. Rest of her family is sick with similar viral symptoms. 2-3 weeks ago influenza made it through their family but everybody seemed to getting over it for the past week. No nausea vomiting diarrhea cough. She is about 2 weeks . Her child is doing well. Allergies and Home Medications Allergies Coded Allergies: No Known Drug Allergies (Unverified , 11/21/18) Home Medications Ibuprofen 600 Mg Tablet, 600 MG PO Q6H Prescribed by: DODIE MIRANDA on 10/28/18 0743 Vit W-Ca,Fe,FA(<1 mg) 1 Each Tablet, 1 EACH PO DAILY, (Reported) Patient Home Medication List Home Medication List Reviewed: Yes Review of Systems Review of Systems Constitutional: chills, fever, malaise EENTM: No ear discharge, No ear pain Respiratory: cough; No phlegm, No short of breath, No wheezing Cardiovascular: No chest pain, No palpitations Gastrointestinal: No abdominal pain, No constipation, No diarrhea, No nausea Genitourinary: No discharge, No dysuria Musculoskeletal: No back pain, No joint pain Skin: No pruritus, No rash Psychiatric/Neurological: Denies Headache, Denies Numbness Past Pbjcpcs-Hixyes-Cqejmk Hx Patient Social History Alcohol Use: Denies Use Recreational Drug Use: No Smoking Status: Current Everyday Smoker 2nd Hand Smoke Exposure: Yes Recent Foreign Travel: No Contact w/Someone Who Travel: No Recent Hopitalizations: No Immunizations Up To Date Tetanus Booster (TDap): Unknown Date of Influenza Vaccine: Jun 20, 2018 Seasonal Allergies Seasonal Allergies: Yes Past Medical History Surgeries: Yes (EGD, BILAT KNEE SCOPES) Gallbladder, Orthopedic Respiratory: No Cardiac: No Neurological: No Reproductive Disorders: No Female Reproductive Disorders: Denies 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 Physical Exam Vital Signs - First Documented 11/21/18 22:25 Temp 102.4 Pulse 106 Resp 16 B/P (MAP) 117/73 (88) O2 Delivery Room Air Capillary Refill : Height: 5'4.00" Weight: 206lbs. 6.0oz. 93.891853xw; 35.4 BMI Method:Stated General Appearance: WD/WN, no apparent distress Eyes: Bilateral Eye Normal Inspection, Bilateral Eye PERRL, Bilateral Eye EOMI HEENT: PERRL/EOMI, normal ENT inspection, TMs normal, pharyngeal erythema; No tonsillar exudate Neck: non-tender, full range of motion, supple, normal inspection Respiratory: lungs clear, normal breath sounds, no respiratory distress, no accessory muscle use Cardiovascular: normal peripheral pulses, regular rate, rhythm, no edema Progress/Results/Core Measures Suspected Sepsis SIRS Temperature: Pulse: Respiratory Rate: Blood Pressure / Mean: Results/Orders Lab Results Laboratory Tests Test 11/21/18 22:37 Range/Units Group A Streptococcus Screen NEGATIVE NEGATIVE Micro Results Microbiology 11/21/18 Influenza Types A,B Antigen (ADITI) - Final, Complete My Orders Orders - LB FERNÁNDEZ Influenza A And B Antigens (11/21/18 22:31) Rapid Strep A Screen (11/21/18 22:31) Ibuprofen Tablet (Motrin Tablet) (11/21/18 22:45) Medications Given in ED Current Medications Medications Dose Ordered Sig/Kiarra Route Start Time Stop Time Status Last Admin Dose Admin Ibuprofen 800 mg ONCE ONCE PO 11/21/18 22:45 11/21/18 22:46 DC 11/21/18 22:55 800 MG Vital Signs/I&O 11/21/18 11/21/18 22:25 22:55 Temp 102.4 102.4 Pulse 106 Resp 16 B/P (MAP) 117/73 (88) O2 Delivery Room Air Capillary Refill : Departure Impression Primary Impression: Influenza A Disposition: 01 HOME, SELF-CARE Condition: Stable Departure-Patient Inst. Decision time for Depature: 23:26 Referrals: DODIE MIRANDA MD (PCP/Family) Primary Care Physician Patient Instructions: Flu, Adult (DC) Add. Discharge Instructions: You been provided a prophylactic dose of Tamiflu for your as well as yourself a dose of 75 mg twice a day for the next 5 days. Use humidifiers, vapor rubs, Tylenol and ibuprofen as necessary. Saltwater gargles for your sore throat. Expect improvement over the next 2 weeks. Scripts Oseltamivir Phosphate (Tamiflu) 75 Mg Cap 75 MG PO BID for 5 Days, #10 CAP 0 Refills Prov: LB FERNÁNDEZ 11/21/18 Work/School Note: Work Release Form Date Seen in the Emergency Department: Nov 21, 2018 Return to Work: Nov 28, 2018 Restrictions: Return-No Fever (24hrs) Copy Copies To 1: DODIE MIRANDA MD, TITUS J Nov 21, 2018 22:42
[2018-11-21] MEDS ORDERED: IBUPROFEN 800 MG (MOTRIN) TAB PO ONE (22:45)
[2018-11-21] MEDS ORDERED: OSLT75C PO (23:29)
[2018-11-21 23:40] VITALS: BP 106/64
== END 2018-11-21 23:41 | disposition home or self-care (01) ==
LOC: EDUNIT# 22:02 → ER 22:04
DX: O99.53 Diseases of the respiratory system complicating the puerperium (principal); J10.1 Influenza due to other identified influenza virus with other respiratory manifestations; O99.335 Smoking (tobacco) complicating the puerperium; F17.200 Nicotine dependence, unspecified, uncomplicated; Z87.19 Personal history of other diseases of the digestive system; Z98.890 Other specified postprocedural states
CPT/HCPCS: 87430; 87804

== ENCOUNTER 2019-01-14 17:59 | Emergency (ER) | payer MEDICAID ==
[~2019-01-14] VITALS: Ht 162.6 cm; Wt 78.9 kg
[~2019-01-14 17:59] MED LIST changes: +OSLT75C PO
[2019-01-14] MEDS ORDERED: RX-NAPROXEN (NAPROSYN) 250 MG TAB PPK#4 PO STA (19:39)
[2019-01-14] MEDS ORDERED: NAPR-1071 PO (19:42)
--- NOTE | 2019-01-14 19:42 | ED Lower Extremity ---
General Chief Complaint: Lower Extremity Stated Complaint: R ANKLE PAIN Nursing Triage Note: PT AMB TO TRIAGE WITH COMPLAINT OF RIGHT ANKLE PAIN THAT STARTED THREE WEEKS AGO. STATES PAIN IS INCREASING. STATES ANKLE IS SWOLLEN, SNAPS, AND CRACKLES WHENEVER SHE MOVES. DENIES INJURY. Nursing Sepsis Screen: No Definite Risk History of Present Illness Date Seen by Provider: Jan 14, 2019 Time Seen by Provider: 18:20 Initial Comments 23-year-old female presents for 3 week history of right ankle pain and crepitus. She was seen 2 weeks ago at the [facility] walk-in clinic and x-rays were obtained of the right ankle showed no acute findings. She has had no new injuries. She's had a previous history of fracture and surgery on her left ankle. She has tried Tylenol and ibuprofen intermittently with no improvement in her symptoms. Pain/Injury Location: right ankle Method of Injury: unknown Allergies and Home Medications Allergies Coded Allergies: No Known Drug Allergies (Unverified , 11/21/18) Home Medications Ibuprofen 600 Mg Tablet, 600 MG PO Q6H Prescribed by: DODIE MIRANDA on 10/28/18 0743 Naproxen 500 Mg Tablet, 500 MG PO BIDPC Prescribed by: AKHIL WARD on 01/14/19 194 Oseltamivir Phosphate 75 Mg Cap, 75 MG PO BID Prescribed by: LB FERNÁNDEZ on 11/21/18 2329 Vit W-Ca,Fe,FA(<1 mg) 1 Each Tablet, 1 EACH PO DAILY, (Reported) Patient Home Medication List Home Medication List Reviewed: Yes Review of Systems Constitutional: no symptoms reported, see HPI Musculoskeletal: see HPI, joint pain (right ankle) All Other Systems Reviewed Negative Unless Noted: Yes Past Ttgbsmh-Mubyof-Fakeoe Hx Past Med/Social Hx: Reviewed Nursing Past Med/Soc Hx Patient Social History Alcohol Use: Denies Use Recreational Drug Use: No Smoking Status: Never a Smoker 2nd Hand Smoke Exposure: Yes Recent Foreign Travel: No Contact w/Someone Who Travel: No Recent Infectious Disease Expo: No Recent Hopitalizations: No Immunizations Up To Date Tetanus Booster (TDap): Unknown Date of Influenza Vaccine: Jun 20, 2018 Seasonal Allergies Seasonal Allergies: Yes Past Medical History Surgeries: Yes (EGD, BILAT KNEE SCOPES) Gallbladder, Orthopedic Respiratory: No Cardiac: No Neurological: No Reproductive Disorders: No Female Reproductive Disorders: Denies 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 Physical Exam Vital Signs Vital Signs - First Documented 01/14/19 18:17 Pulse 64 Resp 20 B/P (MAP) 121/71 (88) Pulse Ox 100 O2 Delivery Room Air Capillary Refill : Less Than 3 Seconds Height, Weight, BMI Height: 5'4.00" Weight: 174lbs. 6.0oz. [id number]; 35.4 BMI Method:Stated General Appearance: WD/WN, no apparent distress Cardiovascular: normal peripheral pulses, regular rate, rhythm, no murmur Respiratory: chest non-tender, lungs clear, normal breath sounds, no respiratory distress Ankles: right ankle non-tender, right ankle normal inspection, right ankle normal range of motion, right ankle no evidence of injury, right ankle soft tissue tenderness (generalized in the lateral ankle), right ankle other (power V /V with resisted dorsiflexion, plantarflexion, inversion and a version. Negative talar tilt, negative anterior drawer. No instability.) Neurologic/Psychiatric: no motor/sensory deficits, alert, normal mood/affect, oriented x 3 Progress/Results/Core Measures Results/Orders My Orders Orders - AKHIL WARD Rx-Naproxen (Rx-Naprosyn) (01/14/19 19:39) Vital Signs/I&O 01/14/19 01/14/19 18:17 19:44 Pulse 64 64 Resp 20 14 B/P (MAP) 121/71 (88) 121/71 (88) Pulse Ox 100 100 O2 Delivery Room Air Room Air Blood Pressure Mean: 88 Progress Progress Note : Time: 18:20 Progress Note Patient seen and evaluated, no indication for x-ray without injury, and negative x-rays 2 weeks ago. 4 inch Shankar wrap applied. Charge instructions and return precautions reviewed with her. Departure Impression Primary Impression: Pain in right ankle Qualified Codes: M25.571 - Pain in right ankle and joints of right foot Disposition: 01 HOME, SELF-CARE Condition: Improved Departure-Patient Inst. Decision time for Depature: 19:30 Referrals: DODIE MIRANDA MD (PCP/Family) Primary Care Physician Patient Instructions: Joint Pain Add. Discharge Instructions: Ice to right ankle 20 minutes every 2 hours while awake. Use Sahnkar wrap as needed. Take prescribed medication as directed. Schedule follow-up appointment with orthopedics. Return to emergency department for new, urgent health care needs. All discharge instructions reviewed with patient and/or family. Voiced understanding. Scripts Naproxen (Naprosyn) 500 Mg Tablet 500 MG PO BIDPC, #40 TAB 0 Refills Prov: AKHIL WARD 01/14/19 Copy Copies To 1: DODIE MIRANDA MD, AMY ARNP Jan 14, 2019 19:42
[2019-01-14 19:44] VITALS: BP 121/71
== END 2019-01-14 19:50 | disposition home or self-care (01) ==
LOC: EDUNIT# 17:59 → ER 18:00
DX: M25.571 Pain in right ankle and joints of right foot (principal); Z77.22 Contact with and (suspected) exposure to environmental tobacco smoke (acute) (chronic); Z87.81 Personal history of (healed) traumatic fracture; Z98.890 Other specified postprocedural states; Z87.19 Personal history of other diseases of the digestive system

== ENCOUNTER 2019-05-12 20:24 | Emergency (ER) | payer SELFPAY, MEDICAID | END 2019-05-12 22:26 | disposition home or self-care (01) | LOC: ER 20:24 ==

== ENCOUNTER → 2020-07-23 | Outpatient (CLI) | payer MEDICAID ==
[~2020-07-23] MED LIST changes: +CEPH500T PO; +NAPR-1071 PO
--- NOTE | 2020-07-23 12:45 | Diagnostic Imaging Report ---
PROCEDURE: US OB SINGLE FETUS <14 WKS. TECHNIQUE: Multiple Real-time grayscale images were obtained over the gravid uterus in various projections. INDICATION: dating. FINDINGS: There is a single live IUP of approximately 9 weeks 0 days gestation. The heart rate was recorded at 169 BPM. No rita-gestational sac hemorrhage is detected. The adnexa are unremarkable. There is no adnexal mass or free fluid. IMPRESSION: Single live IUP of 9 weeks 0 days gestational age. Estimated date of confinement sonographically is 02/25/2021. Dictated by: Dictated on workstation # [id number]
== END ==
LOC: RAD 10:00
PROVIDERS: ATTEND Family Medicine
DX: Z34.91 Encounter for supervision of normal pregnancy, unspecified, first trimester (principal); Z3A.09 9 weeks gestation of pregnancy
CPT/HCPCS: 76801

== ENCOUNTER → 2020-09-24 | Outpatient (CLI) | payer MEDICAID ==
--- NOTE | 2020-09-24 14:20 | Diagnostic Imaging Report ---
INDICATION: survey. TECHNIQUE: Multiple real-time grayscale images were obtained over the gravid uterus. COMPARISON: 07/23/2020. FINDINGS: The cervix measures approximately 7.5 cm in length. There is a single live intrauterine in transverse position. The placenta is posteriorly located and has no features of previa. The JEROMY is normal at 13.1 cm. anatomy survey was performed and the following structures are visualized and normal: Stomach, four-chamber heart, kidneys, cerebellum, cerebral ventricles, spine, urinary bladder, umbilical cord insertion, profile and lip/nose. Biometrical measurements are as follows: Biparietal 3.92 cm, age 18 weeks 0 days. Head circumference 14.89 cm, age 18 weeks 0 days. Abdominal circumference 12.20 cm, age 18 weeks 0 days. Femur length 2.66 cm, age 18 weeks 1 days. Sonographic estimate age: 18 weeks 1 days. Sonographic estimated date of delivery: 02/24/2021. Estimated Weight: 218 gm (+/- 32 gm). LMP percentile: 43%. heart rate: 150 beats per minute. number: 1 of 1. IMPRESSION: 1. Single live intrauterine with normal anatomy survey. Dictated by: Dictated on workstation # [id number]
== END ==
LOC: RAD 12:00
PROVIDERS: ATTEND Family Medicine
DX: Z34.90 Encounter for supervision of normal pregnancy, unspecified, unspecified trimester (principal); Z3A.00 Weeks of gestation of pregnancy not specified
CPT/HCPCS: 76805

== ENCOUNTER → 2020-12-05 | Outpatient (CLI) | payer MEDICAID | LOC: WSo 15:53 | PROVIDERS: ATTEND Family Medicine | DX: Z67.91 Unspecified blood type, Rh negative (principal) | CPT/HCPCS: 96372 ==

== ENCOUNTER 2021-02-18 06:00 | Inpatient (IN) | payer MEDICAID ==
[2021-02-18] VITALS (36 sets, daily range): BP systolic 95–122; BP diastolic 53–69
[~2021-02-18] VITALS: Ht 162.6 cm; Wt 95.0 kg
[2021-02-18] MEDS ORDERED: D5 LR IV SOLUTION 1,000 ML IV ONE (06:43)
[2021-02-18] MEDS ORDERED: D5 LR IV SOLUTION 1,000 ML IV SCH ×2 (07:00)
[2021-02-18 07:06] LABS: BASOPHILS # (AUTO) 0.1 10^3/uL (0.0-0.1); BASOPHILS % (AUTO) 1 % (0-10); EOSINOPHILS # (AUTO) 0.2 10^3/uL (0.0-0.3); EOSINOPHILS % (AUTO) 2 % (0-10); HEMATOCRIT 37 % (35-52); HEMOGLOBIN 12.4 g/dL (11.5-16.0); LYMPHOCYTES # (AUTO) 1.8 10^3/uL (1.0-4.0); LYMPHOCYTES % (AUTO) 21 % (12-44); MEAN CORPUSCULAR HEMOGLOBIN 30 pg (25-34); MEAN CORPUSCULAR HGB CONC 34 g/dL (32-36); MEAN CORPUSCULAR VOLUME 89 fL (80-99); MEAN PLATELET VOLUME 11.2 fL (9.0-12.2); MONOCYTES # (AUTO) 0.6 10^3/uL (0.0-1.0); MONOCYTES % (AUTO) 7 % (0-12); NEUTROPHILS # (AUTO) 5.8 10^3/uL (1.8-7.8); NEUTROPHILS % (AUTO) 69 % (42-75); PLATELET COUNT 230 10^3/uL (130-400); WHITE BLOOD COUNT 8.5 10^3/uL (4.3-11.0)
--- NOTE | 2021-02-18 07:25 | History & Physical-OB ---
OB - Chief Complaint & HPI Date/Time Date of Admission: Date of Admission: Feb 18, 2021 at 06:00 Date seen by a Provider: Feb 18, 2021 Time Seen by a Provider: 06:30 Chief Complaint/History OB-Reason for Admission/Chief: Induction of Labor Hx : 4 Hx Para: 3 Expected Date of Delivery: Feb 24, 2021 Gestational Age in Weeks: 39 Gestational Age in Days: 1 Admission Nurse Assessment Rev: Yes History of Labs GBS negative Allergies and Home Medications Allergies Coded Allergies: No Known Drug Allergies (Unverified , 11/21/18) Home Medications Cephalexin 500 Mg Tablet, 500 MG PO TID Prescribed by: CHONG NAYAK on 05/12/19 2204 Ibuprofen 600 Mg Tablet, 600 MG PO Q6H Prescribed by: DODIE MIRANDA on 10/28/18 0743 Naproxen 500 Mg Tablet, 500 MG PO BIDPC Prescribed by: AKHIL WARD on 01/14/19 194 Oseltamivir Phosphate 75 Mg Cap, 75 MG PO BID Prescribed by: LB FERNÁNDEZ on 11/21/18 2329 Vit W-Ca,Fe,FA(<1 mg) 1 Each Tablet, 1 EACH PO DAILY, (Reported) Patient Home Medication List Home Medication List Reviewed: Yes OB - History Hx of Present Care: Yes Ultrasounds: Normal mid trimester US Obstetrical Complications: None Medical Complications: None Obstetrical History Hx Termination: No Hx Multiple Gestation: No Hx Stillbirth: No Hx Complication: No Hx Induced Hypertens: No Hx Maternal Gestational Diabet: No Delivery History Hx Dystocia: No Hx Large For Gestational Age I: No Hx Small for Gestational Age I: No Hx Section: No Hx Vaginal Delivery Post C-Sec: No Hx Blood Disorders: No Patient Past Medical History no chronic medical problems Social History/Family History 2nd Hand Smoke Exposure: Yes Immunizations Tetanus Booster (TDap): Unknown Date of Influenza Vaccine: Jun 20, 2018 OB - Admission Exam Physical Exam Vitals: Vital Signs 02/18/21 06:17 Temp 36.6 Pulse 100 Resp 18 Pulse Ox 97 O2 Delivery Room Air HEENT: Moist Membranes Heart: Rhythm Normal Lungs: Clear Abdomen: Gravid Cervical Dilatation: 1cm Effacement: 75% Membranes: Intact Heart Rate: 140's Accelerations: Accelerations Present Short Term Variability: Present Senior Living Variability: Average (6-25) Contractions on Admission: >10 Minutes Apart Intensity: Mild Alston Scoring Tool (Modified) Dilation (cm): 1-2cm (1) Effacement (%): 51-79% (2) Descent/Station: -3 (0) Cervix Consistency: Medium(1) Cervix Position: Middle/Mid-Position (1) Add 1 point for: Each previous vaginal delivery (1) Alston Score: 8 Labs Laboratory Tests Test 02/18/21 06:25 Range/Units White Blood Count 8.5 4.3-11.0 10^3/uL Red Blood Count 4.11 3.80-5.11 10^6/uL Hemoglobin 12.4 11.5-16.0 g/dL Hematocrit 37 35-52 % Mean Corpuscular Volume 89 80-99 fL Mean Corpuscular Hemoglobin 30 25-34 pg Mean Corpuscular Hemoglobin Concent 34 32-36 g/dL Red Cell Distribution Width 12.7 10.0-14.5 % Platelet Count 230 130-400 10^3/uL Mean Platelet Volume 11.2 9.0-12.2 fL Immature Granulocyte % (Auto) 1 % Neutrophils (%) (Auto) 69 42-75 % Lymphocytes (%) (Auto) 21 12-44 % Monocytes (%) (Auto) 7 0-12 % Eosinophils (%) (Auto) 2 0-10 % Basophils (%) (Auto) 1 0-10 % Neutrophils # (Auto) 5.8 1.8-7.8 10^3/uL Lymphocytes # (Auto) 1.8 1.0-4.0 10^3/uL Monocytes # (Auto) 0.6 0.0-1.0 10^3/uL Eosinophils # (Auto) 0.2 0.0-0.3 10^3/uL Basophils # (Auto) 0.1 0.0-0.1 10^3/uL Immature Granulocyte # (Auto) 0.1 0.0-0.1 10^3/uL OB - Assessment/Plan/Diagnosis Assessment Assessment: induction of labor Admission Dx 1. IUP at term, 39w1d Admission Status: Inpatient Order (span 2 midnights) Reason for Inpatient Admission: Induction of labor Plan Plan: Induction Induction Method: AROM Other Plan -pitocin as needed -stadol 1mg q 2hr prn pain RUTH,DODIE J MD Feb 18, 2021 07:25
[2021-02-18] MEDS ORDERED: BUTORPHANOL INJ 2 MG/ML (STADOL) VIAL IV PRN (07:30)
[2021-02-18] MEDS ORDERED: OXYTOCIN PRE-MIX DRIP 500 ML IV SCH ×2 (07:30→16:15)
[2021-02-18] MEDS ORDERED: CATHETER FLUSH 10 ML SYR IV SCH ×2 (14:00→22:00)
--- NOTE | 2021-02-18 16:13 | OB Labor & Delivery Record ---
L&D History Date of Service Date of Service: Feb 18, 2021 History Expected Date of Delivery: Feb 25, 2021 Gestational Age in Weeks: 39 Hx : 4 Hx Para: 4 Complications Events: Routine care Operative Indications (Cesarea: N/A-Vaginal Delivery Intrapartal Events: None L&D Stage1 Stage One Onset of Labor - Date: Feb 18, 2021 Onset of Labor - Time: 06:46 Monitors and Tracing Monitor Mode: Internal Heart Rate: 125 Monitor Accelerations: Uniform Monitor Decelerations: None Station: -1 Fci Variability: Average (6-10) Presentation: Vertex Vital Signs VS - Last 72 Hours, by Label 02/18/21 02/18/21 02/18/21 02/18/21 06:17 08:25 08:40 08:55 Temp 36.6 36.7 Pulse 100 80 78 73 Resp 18 20 20 20 B/P (MAP) 102/61 (75) 95/60 (72) 96/57 (70) Pulse Ox 97 O2 Delivery Room Air 02/18/21 02/18/21 02/18/21 02/18/21 09:15 09:30 09:47 10:00 Pulse 69 73 77 78 Resp 20 20 20 20 B/P (MAP) 100/55 (70) 105/62 (76) 107/59 (75) 105/56 (72) 02/18/21 02/18/21 02/18/21 02/18/21 10:15 10:30 10:45 11:00 Pulse 88 93 70 67 Resp 20 20 20 20 B/P (MAP) 100/59 (73) 98/58 (71) 104/67 (79) 103/55 (71) 02/18/21 02/18/21 02/18/21 02/18/21 11:15 11:30 11:45 12:00 Temp 36.4 Pulse 78 75 78 94 Resp 20 20 20 20 B/P (MAP) 105/60 (75) 105/61 (76) 99/58 (72) 107/64 (78) 02/18/21 02/18/21 02/18/21 02/18/21 12:15 12:30 12:45 13:00 Pulse 80 70 77 83 Resp 20 20 20 20 B/P (MAP) 116/63 (80) 109/62 (78) 112/64 (80) 107/58 (74) 02/18/21 02/18/21 02/18/21 02/18/21 13:15 13:30 13:45 14:00 Temp 36.6 Pulse 86 85 72 80 Resp 20 20 20 20 B/P (MAP) 104/60 (75) 118/60 (79) 108/60 (76) 118/63 (81) 02/18/21 02/18/21 02/18/21 02/18/21 14:15 14:30 14:45 15:00 Pulse 76 75 86 85 Resp 20 20 20 20 B/P (MAP) 115/68 (84) 119/65 (83) 114/66 (82) 122/69 (86) 02/18/21 02/18/21 02/18/21 02/18/21 15:15 15:30 15:45 16:00 Temp 37.1 37.1 37.1 36.6 Pulse 78 84 78 81 Resp 20 20 20 20 B/P (MAP) 114/58 (76) 116/56 (76) 112/55 (74) 115/55 (75) Signs of Distress by FHT Signs of Distress No Rupture of Membranes Spontaneous Ruture of Membrane: No Amniotic Membrane Rupture Time: 0646 Amniotic Membrane Fluid Desc.: Clear Vaginal Bleeding Description: None Induction/Anesthesia Medications Stadol x 1 L&D Stage2 Stage Two Stage II Date: Feb 18, 2021 Stage II Time: 15:11 Monitors and Tracing Monitor Mode: Internal Heart Rate: 125 Monitor Accelerations: Uniform Monitor Decelerations: Variable Fci Variability: Average (6-10) Short Term Variability: Present Position: Left Occiput Anterior Presentation: Vertex Signs of Distress by FHT Signs of Distress no Cord Descript/Complications Cord Vessel Description: 3 Vessels Delivery Type Infant Delivery Method: Spontaneous Vaginal Anterior Shoulder: Left Episiotomy/Perineal Laceration Laceraction(s)/Extensions: No Condition of Infant Delivery 1 minute Comment: 9 5 minute Comment: 9 Condition of Infant Condition of : Living Exam: No Observed Abnormalities Resuscitation Resuscitation: N/A - Spontaneous Resp L&D Stage3 Stage Three Stage III Date: Feb 18, 2021 Stage III Time: 15:16 Pictocin Pitocin Administration mu/min: 10 Pitocin ml/hr: 10 Placenta Delivery Placenta Delivery: Spontaneous Delivery Summary Summary Estimated blood loss (mL): 150 Condition of Delivery Examined: Cervix Examined Post Hemorrhage: No Intervention Required none DODIE MIRANDA MD Feb 18, 2021 16:13
[2021-02-18] MEDS ORDERED: WITCH HAZEL(TUCKS) 40 EA JAR TOP PRN (16:15)
[2021-02-18] MEDS ORDERED: MEASLES,MUMPS,RUBELLA 1 EA INJ SQ ONE (16:15)
[2021-02-18] MEDS ORDERED: TETANUS,DIPTH,PERTUSS P/F (BOOSTRIX) 0.5 ML VIAL IM ONE (16:15)
[2021-02-18] MEDS ORDERED: BENZOCAINE/MENTHOL (DERMOPLAST) 56 ML CAN TP PRN (16:15)
[2021-02-18] MEDS: IBUPROFEN 600 MG (MOTRIN) TAB PO SCH (18:48)
[2021-02-18] MEDS: ACETAMINOPHEN 500 MG TAB (TYLENOL) PO SCH (18:48)
[2021-02-18] MEDS ORDERED: DOCUSATE SODIUM 100 MG (COLACE) CAP PO SCH (21:00)
[2021-02-19] MEDS: IBUPROFEN 600 MG (MOTRIN) TAB PO SCH ×3 (02:06→16:04)
[2021-02-19 02:45] VITALS: BP 107/57
[2021-02-19 03:52] LABS: BASOPHILS % (AUTO) 0 % (0-10); EOSINOPHILS # (AUTO) 0.1 10^3/uL (0.0-0.3); EOSINOPHILS % (AUTO) 1 % (0-10); HEMATOCRIT 34 % (35-52); HEMOGLOBIN 11.3 g/dL (11.5-16.0); LYMPHOCYTES # (AUTO) 1.8 10^3/uL (1.0-4.0); LYMPHOCYTES % (AUTO) 17 % (12-44); MEAN CORPUSCULAR HEMOGLOBIN 30 pg (25-34); MEAN CORPUSCULAR HGB CONC 34 g/dL (32-36); MEAN CORPUSCULAR VOLUME 89 fL (80-99); MEAN PLATELET VOLUME 11.1 fL (9.0-12.2); MONOCYTES # (AUTO) 0.7 10^3/uL (0.0-1.0); MONOCYTES % (AUTO) 7 % (0-12); NEUTROPHILS # (AUTO) 7.9 10^3/uL (1.8-7.8); NEUTROPHILS % (AUTO) 75 % (42-75); PLATELET COUNT 206 10^3/uL (130-400); WHITE BLOOD COUNT 10.5 10^3/uL (4.3-11.0)
[2021-02-19 06:00] VITALS: BP 98/56
[2021-02-19] MEDS: ACETAMINOPHEN 500 MG TAB (TYLENOL) PO SCH ×2 (09:32→16:04)
[2021-02-19 09:33] VITALS: BP 110/70
[2021-02-19 16:06] VITALS: BP 115/67
[2021-02-19 17:40] VITALS: BP 115/67
--- NOTE | 2021-02-19 18:16 | Discharge Summary ---
Diagnosis/Chief Complaint Date of Admission Feb 18, 2021 at 06:00 Date of Discharge February 19, 2021 Discharge Date: Feb 19, 2021 Discharge Time: 18:00 Admission Diagnosis Admission Diagnosis 1. IUP at term 39 weeks. Discharge Diagnosis 1. IUP at term 39 weeks. Reason Hospital Visit 25 yo G5 now L5 here for induction of labor. GBS negative. care was uneventful. Discharge Summary-OBS Procedures 1. Discharge Physical Examination Allergies: Coded Allergies: No Known Drug Allergies (Unverified , 11/21/18) Vitals & I&Os Vital Signs Date Time Temp Pulse Resp B/P (MAP) Pulse Ox O2 Delivery O2 Flow Rate FiO2 02/19/21 16:06 36.7 75 18 115/67 (83) 97 Room Air General Appearance: No Acute Distress Respiratory: Clear to Auscultation Cardiovascular: Regular Rate Abdominal: Normal Bowel Sounds, Soft (with uterus firm) Hospital Course Was the Problem List Reviewed?: Yes Discharge Instructions to patient/family Please see electronic discharge instructions given to patient. Discharge Medications Reviewed and agree with Discharge Medication list on patient's Discharge Instruction sheet DODIE MIRANDA MD Feb 19, 2021 18:16
== END 2021-02-19 17:40 | disposition home or self-care (01) | DRG 807 ==
LOC: LDRP 06:00
PROVIDERS: ADMIT Family Medicine; ATTEND Family Medicine
PROC: 10E0XZZ Delivery of Products of Conception, External Approach (ICD-10-PCS; principal; 2021-02-18)
PROC: 10907ZC Drainage of Amniotic Fluid, Therapeutic from Products of Conception, Via Natural or Artificial Opening (ICD-10-PCS; 2021-02-18)
DX: O80 Encounter for full-term uncomplicated delivery (principal); Z37.0 Single live birth; Z3A.39 39 weeks gestation of pregnancy; Z79.2 Long term (current) use of antibiotics
CPT/HCPCS: 36415; 83033; 85025; 86850; 86900; 86901

== ENCOUNTER 2022-04-28 12:48 | Emergency (ER) | payer MEDICAID ==
[~2022-04-28] VITALS: Ht 162.5 cm; Wt 86.0 kg
--- NOTE | 2022-04-28 13:11 | ED Integumentary General ---
General Chief Complaint: Bite-Animal/Human/Insect Stated Complaint: POSS SPIDER BITE BACK OF RIGHT LEG Source: patient Exam Limitations: no limitations History of Present Illness Date Seen by Provider: Apr 28, 2022 Time Seen by Provider: 13:08 Initial Comments Patient is a 26-year-old female who presents ED with a rash to her right pos terior knee. This started 1 week ago. She states she woke up with a small lump behind her right knee. This has progressed to got worse with increased redness and swelling. She reports itching. The lump has improved. Went to the clinic was prescribed Keflex which she was only taking 1 a day. The dosing was take Keflex twice a day for 7 days. She has taken her second day worth of 2 doses. Denies fever, chills, nausea, vomiting, diarrhea. They also recommend to apply topical hydrocortisone which she has. She states redness and swelling has gotten worse today. she is concerned she may have been bitten by a spider. Denies of any calf swelling or thigh swelling. No history of similar symptoms in the past. Allergies and Home Medications Allergies Coded Allergies: No Known Drug Allergies (Unverified , 11/21/18) Patient Home Medication List Home Medication List Reviewed: Yes Ferrous Sulfate (Iron) 325 Mg Tablet, 325 MG PO, (Reported) Entered as Reported by: KALEN GARCIA on 08/27/182150 Ibuprofen (Ibu) 600 Mg Tablet, 600 MG PO Q6H Prescribed by: DODIE MIRANDA on 10/28/18 0743 Prednisone (Prednisone) 50 Mg Tab, 50 MG PO DAILY Prescribed by: SHAUNA MONTELONGO on 04/28/22 1357 Sulfamethoxazole/Trimethoprim (Bactrim Ds Tablet) 800 Mg-160 Mg Tablet, 1 EACH PO BID Prescribed by: SHAUNA MONTELONGO on 04/28/22 1357 Review of Systems Review of Systems Constitutional: No chills, No diaphoresis, No malaise, No weakness EENTM: No hearing loss, No blurred vision, No double vision Respiratory: No cough, No dyspnea on exertion, No phlegm, No short of breath Cardiovascular: No chest pain Gastrointestinal: No abdominal pain, No diarrhea, No nausea, No vomiting Genitourinary: No decreased output, No discharge Musculoskeletal: No back pain Skin: change in color, pruritus, rash All Other Systems Reviewed Negative Unless Noted: Yes Past Sbiatmt-Phbgdu-Yqqdms Hx Patient Social History Tobacco Use?: No Substance use?: No Alcohol Use?: No Pt feels they are or have been: Unable to obtain Immunizations Up To Date Tetanus Booster (TDap): Unknown PED Vaccines UTD: Yes Influenza Vaccine Up-to-Date: No; Not Current Seasonal Allergies Seasonal Allergies: Yes Past Medical History Surgeries: Yes (EGD, BILAT KNEE SCOPES) Gallbladder, Orthopedic Respiratory: No Cardiac: No Neurological: No Reproductive Disorders: No Female Reproductive Disorders: Denies 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 No Pertinent Family Hx Physical Exam Vital Signs Vital Signs - First Documented 04/28/22 12:55 Temp 36.5 Pulse 99 Resp 16 B/P (MAP) 124/96 (105) Pulse Ox 96 O2 Delivery Room Air Capillary Refill : General Appearance: WD/WN, no apparent distress HEENT: PERRL/EOMI, normal ENT inspection, TMs normal, pharynx normal Neck: non-tender, supple, normal inspection Cardiovascular: regular rate, rhythm, no edema, no gallop, no JVD Respiratory: chest non-tender, lungs clear, normal breath sounds, no respiratory distress, no accessory muscle use Gastrointestinal: normal bowel sounds, non tender, soft, no organomegaly Back: normal inspection, no CVA tenderness Extremities: normal range of motion (Right knee), other (Erythema noted to the right posterior knee. No area of inoculation. Warmth. No pustules, vesicles, function mass) Skin: other (Erythema behind the right posterior knee to the right proximal calf. No fluctuant mass, pustules, vesicles. Papular macular edematous erythematous rash to the thigh and upper extremities) Progress/Results/Core Measures Results/Orders Lab Results Laboratory Tests Test 04/28/22 13:20 Range/Units White Blood Count 7.5 4.3-11.0 10^3/uL Red Blood Count 4.38 3.80-5.11 10^6/uL Hemoglobin 12.9 11.5-16.0 g/dL Hematocrit 39 35-52 % Mean Corpuscular Volume 88 80-99 fL Mean Corpuscular Hemoglobin 30 25-34 pg Mean Corpuscular Hemoglobin Concent 33 32-36 g/dL Red Cell Distribution Width 12.2 10.0-14.5 % Platelet Count 256 130-400 10^3/uL Mean Platelet Volume 10.6 9.0-12.2 fL Immature Granulocyte % (Auto) 0 % Neutrophils (%) (Auto) 58 42-75 % Lymphocytes (%) (Auto) 30 12-44 % Monocytes (%) (Auto) 7 0-12 % Eosinophils (%) (Auto) 4 0-10 % Basophils (%) (Auto) 1 0-10 % Neutrophils # (Auto) 4.3 1.8-7.8 10^3/uL Lymphocytes # (Auto) 2.2 1.0-4.0 10^3/uL Monocytes # (Auto) 0.5 0.0-1.0 10^3/uL Eosinophils # (Auto) 0.3 0.0-0.3 10^3/uL Basophils # (Auto) 0.1 0.0-0.1 10^3/uL Immature Granulocyte # (Auto) 0.0 0.0-0.1 10^3/uL Sodium Level 137 135-145 MMOL/L Potassium Level 4.0 3.6-5.0 MMOL/L Chloride Level 105 98-107 MMOL/L Carbon Dioxide Level 24 21-32 MMOL/L Anion Gap 8 5-14 MMOL/L Blood Urea Nitrogen 13 7-18 MG/DL Creatinine 1.11 0.60-1.30 MG/DL Estimat Glomerular Filtration Rate 71 BUN/Creatinine Ratio 12 Glucose Level 92 70-105 MG/DL Calcium Level 10.1 8.5-10.1 MG/DL Corrected Calcium 9.7 8.5-10.1 MG/DL Total Bilirubin 0.4 0.1-1.0 MG/DL Aspartate Amino Transf (AST/SGOT) 14 5-34 U/L Alanine Aminotransferase (ALT/SGPT) 16 0-55 U/L Alkaline Phosphatase 41 40-136 U/L C-Reactive Protein High Sensitivity 0.63 H 0.00-0.50 MG/DL Total Protein 7.6 6.4-8.2 GM/DL Albumin 4.5 3.2-4.5 GM/DL My Orders Orders - DRISS COWAN Cbc With Automated Diff (04/28/22 13:07) Comprehensive Metabolic Panel (04/28/22 13:07) Hs C Reactive Protein (04/28/22 13:07) Prednisone Tablet (Deltasone Tablet) (04/28/22 14:00) Medications Given in ED Current Medications Medications Dose Ordered Sig/Kiarra Route Start Time Stop Time Status Last Admin Dose Admin Prednisone 50 mg ONCE ONCE PO 04/28/22 14:00 04/28/22 14:01 DC 04/28/22 14:03 50 MG Vital Signs/I&O 04/28/22 04/28/22 12:55 14:06 Temp 36.5 Pulse 99 79 Resp 16 14 B/P (MAP) 124/96 (105) 122/73 Pulse Ox 96 97 O2 Delivery Room Air Room Air Departure Communication (PCP) Concerning for cellulitis behind the right knee. No evidence of septic arthritis. There is no fluctuant mass. She does have a rash that developed here that are erythematous and edematous to the thighs and upper extremities. Possible inflammatory response. She denies of any change in soaps, laundry detergents or topical creams. She was on Keflex but was only taking 500 mg twice daily. She is concerned she may have an allergy to the Keflex because this rash is new on her thighs and the extremity. Discussed changing to Bactrim at this time. Her lab work was otherwise unremarkable and reassuring. Will discharge with prednisone short burst and was given a dose here to start. Recommend Benadryl as she may be having inflammatory response. the area on the leg is concern for more cellulitis. If any worsening symptoms such as fever, chills, nausea, vomiting, worsening rash return back to ED. Impression Primary Impression: Cellulitis Disposition: 01 HOME, SELF-CARE Condition: Stable Departure-Patient Inst. Decision time for Depature: 13:56 Referrals: DODIE MIRANDA MD (PCP/Family) Primary Care Physician Patient Instructions: Cellulitis (Skin Infection), Adult ED Scripts Prednisone (Prednisone) 50 Mg Tab 50 MG PO DAILY for 4 Days, #4 TAB Prov: DRISS COWAN 04/28/22 Sulfamethoxazole/Trimethoprim (Bactrim Ds Tablet) 800 Mg-160 Mg Tablet 1 EACH PO BID for 7 Days, #14 TAB Prov: DRISS COWAN 04/28/22 DRISS COWAN Apr 28, 2022 13:11
[2022-04-28 13:29] LABS: BASOPHILS # (AUTO) 0.1 10^3/uL (0.0-0.1); BASOPHILS % (AUTO) 1 % (0-10); EOSINOPHILS # (AUTO) 0.3 10^3/uL (0.0-0.3); EOSINOPHILS % (AUTO) 4 % (0-10); HEMATOCRIT 39 % (35-52); HEMOGLOBIN 12.9 g/dL (11.5-16.0); LYMPHOCYTES # (AUTO) 2.2 10^3/uL (1.0-4.0); LYMPHOCYTES % (AUTO) 30 % (12-44); MEAN CORPUSCULAR HEMOGLOBIN 30 pg (25-34); MEAN CORPUSCULAR HGB CONC 33 g/dL (32-36); MEAN CORPUSCULAR VOLUME 88 fL (80-99); MEAN PLATELET VOLUME 10.6 fL (9.0-12.2); MONOCYTES # (AUTO) 0.5 10^3/uL (0.0-1.0); MONOCYTES % (AUTO) 7 % (0-12); NEUTROPHILS # (AUTO) 4.3 10^3/uL (1.8-7.8); NEUTROPHILS % (AUTO) 58 % (42-75); PLATELET COUNT 256 10^3/uL (130-400); WHITE BLOOD COUNT 7.5 10^3/uL (4.3-11.0)
[2022-04-28 13:40] LABS: ALBUMIN 4.5 GM/DL (3.2-4.5)
[2022-04-28 13:42] LABS: CALCIUM 10.1 MG/DL (8.5-10.1)
[2022-04-28 13:43] LABS: TOTAL PROTEIN 7.6 GM/DL (6.4-8.2)
[2022-04-28 13:45] LABS: BILIRUBIN,TOTAL 0.4 MG/DL (0.1-1.0)
[2022-04-28 13:47] LABS: CREATININE SERUM 1.11 MG/DL (0.60-1.30)
[2022-04-28] MEDS ORDERED: SULF-221 PO (13:57)
[2022-04-28] MEDS ORDERED: PRD50T PO (13:57)
[2022-04-28] MEDS ORDERED: predniSONE 20 MG TAB PO ONE (14:00)
[2022-04-28 14:06] VITALS: BP 122/73
== END 2022-04-28 14:06 | disposition home or self-care (01) ==
LOC: EDUNIT# 12:48 → ER 12:51
DX: L03.115 Cellulitis of right lower limb (principal); Z28.310 Unvaccinated for COVID-19
CPT/HCPCS: 36415; 80053; 85025; 86141

== ENCOUNTER 2022-07-05 11:08 | Emergency (ER) | payer MEDICAID ==
[~2022-07-05] VITALS: Ht 162 cm; Wt 88.0 kg
[~2022-07-05 11:08] MED LIST changes: +PRD50T PO; +SULF-221 PO
--- NOTE | 2022-07-05 11:48 | ED EENT ---
History of Present Illness General Chief Complaint: Dental Problems/Pain Stated Complaint: DENTAL PAIN Nursing Triage Note: PT CO OF UPPER JAW TOOTH ON L SIDE HURTING FOR APPROX 4 DAYS. RATES PAIN / STATES NEEDS ANTIBIOTIC. Source: patient Exam Limitations: no limitations (LISSETTE ZULUAGA) History of Present Illness Date Seen by Provider: Jul 05, 2022 Time Seen by Provider: 11:30 Initial Comments This 27 year old female presents with reported tooth/mouth pain. Patient states 3-4 days ago she noticed pain in her left upper molars. Patient states her molar that is farthest back on the upper left has been cracked for multiple years but has not given her any trouble. Patient states the pain started in that tooth and has migrated to involve the proximal 3-4 molars. Patient states the pain is throbbing, worsening, and is most severe in second molar from the back. Patient has been taking tylenol that provided relief for the first few days. Patient states the pain has been non-modifiable the past two days with tylenol. Patient states she has also tried oragel gel with little relief. Patient states this morning at 0800 she took 800mg of advil which has helped with the pain. Patient denies fever or gingivitis. Patient states her last dental appointment was several years ago. Patient states she has an appointment with a dentist in July. Patient reports head ache, chills, mild facial swelling on the left, and tender submandibular adenopathy. Patient states cold/hot temperatures and foods/liquids have been mitigating factors. Timing/Duration: other (3-4 days ago) Severity: moderate Location: mouth Prearrival Treatment: over the counter meds (tylenol, oragel, motrin) Associated Symptoms: facial pain/swelling, malaise, tooth pain (LISSETTE ZULUAGA) Allergies and Home Medications Allergies Coded Allergies: No Known Drug Allergies (Unverified , 11/21/18) Patient Home Medication List Home Medication List Reviewed: Yes (LISSETTE ZULUAGA) Amoxicillin (Amoxicillin) 500 Mg Capsule, 1,000 MG PO BID Prescribed by: DARREN MENJIVAR on 07/05/22 1246 Ferrous Sulfate (Iron) 325 Mg Tablet, 325 MG PO, (Reported) Entered as Reported by: KALEN GARCIA on 08/27/18 2151 Ibuprofen (Ibu) 600 Mg Tablet, 600 MG PO Q6H Prescribed by: DODIE MIRANDA on 10/28/18 0743 Prednisone (Prednisone) 50 Mg Tab, 50 MG PO DAILY Prescribed by: SHAUNA MONTELONGO on 04/28/22 1357 Sulfamethoxazole/Trimethoprim (Bactrim Ds Tablet) 800 Mg-160 Mg Tablet, 1 EACH PO BID Prescribed by: SHAUNA MONTELONGO on 04/28/22 1357 Review of Systems Review of Systems Constitutional: chills Eyes: No Symptoms Reported Ears: No Symptoms Reported Nose: no symptoms reported Mouth: pain, other (cracked molar on upper left, pain with applying pressure to upper left molars) Throat: no symptoms reported Respiratory: no symptoms reported Cardiovascular: no symptoms reported Gastrointestinal: no symptoms reported Musculoskeletal: no symptoms reported Skin: no symptoms reported Neurological: No Symptoms Reported Hematologic/Lymphatic: No Symptoms Reported Immunological/Allergic: no symptoms reported (LISSETTE ZULUAGA) All Other Systems Reviewed Negative Unless Noted: Yes (LISSETTE ZULUAGA) Past Etsnaif-Nehpul-Jdnrsg Hx Patient Social History Tobacco Use?: No Substance use?: No Alcohol Use?: No Pt feels they are or have been: No (LISSETTE ZULUAGA) Immunizations Up To Date Tetanus Booster (TDap): Unknown PED Vaccines UTD: Yes (LISSETTE ZULUAGA) Seasonal Allergies Seasonal Allergies: Yes (LISSETTE ZULUAGA) Past Medical History Surgeries: Yes (EGD, BILAT KNEE SCOPES) Gallbladder, Orthopedic Respiratory: No Cardiac: No Neurological: No Reproductive Disorders: No 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 No Pertinent Family Hx (LISSETTE ZULUAGA) Physical Exam Vital Signs Vital Signs - First Documented 07/05/22 11:14 Temp 36.8 Pulse 74 Resp 18 B/P (MAP) 120/82 (95) Pulse Ox 97 (DARREN ESTEVEZ MD) Height, Weight, BMI Height: 5'4.00" Weight: 174lbs. 6.0oz. [id number]; 33.00 BMI Method:Stated General Appearance: WD/WN, no apparent distress Eyes: bilateral eye normal inspection Ears: bilateral ear auricle normal, bilateral ear TM normal Mouth/Throat: pharynx normal, dental tenderness (upper left molars ), mandibular swelling (mild edema on the left ), maxillary swelling (mild edema on the left) Cardiovascular: regular rate, rhythm, no murmur Respiratory: lungs clear, normal breath sounds, no respiratory distress, no accessory muscle use Gastrointestinal: normal bowel sounds Neurologic/Psychiatric: alert, normal mood/affect, oriented x 3 Skin: normal color, warm/dry Mild, tender submandibular lymphadenopathy on the left (LISSETTE ZULUAGA) Progress/Results/Core Measures Results/Orders My Orders Orders - DARREN ESTEVEZ MD Lidocaine 2% Viscous 15 Ml (Xylocaine Vi (07/05/22 12:45) (DARREN ESTEVEZ MD) Vital Signs/I&O 07/05/22 11:14 Temp 36.8 Pulse 74 Resp 18 B/P (MAP) 120/82 (95) Pulse Ox 97 (DARREN ESTEVEZ MD) Blood Pressure Mean: 95 Departure Impression Primary Impression: Dental implant pain Qualified Codes: T85.848A - Pain due to other internal prosthetic devices, implants and grafts, initial encounter Additional Impressions: Broken tooth Qualified Codes: S02.5XXA - Fracture of tooth (traumatic), initial encounter for closed fracture Gingivitis Disposition: HOME, SELF-CARE Condition: Stable Departure-Patient Inst. Decision time for Depature: 12:43 (DARREN ESTEVEZ MD) Referrals: DODIE MIRANDA MD (PCP/Family) Primary Care Physician Patient Instructions: Dental Pain ED Add. Discharge Instructions: Start your antibiotics today and complete the entire course as prescribed. Call your dentist on Wednesday to explain that your new symptoms. Seek follow-up instructions from your dentist. You may use ibuprofen up to 600 mg every 6 hours as needed and/or Tylenol (acetaminophen) up to 1000 mg every 6 hours as needed for pain. You may additionally use the anesthetic gauze pads as provided. Pack a gauze pad into or around the broken surface of your molar. Do not fall asleep with these gauze pads in your mouth. These gauze pads may cause your tongue, throat, and mouth to be numb. Eat and drink with caution after use. [place] your teeth gently twice daily with a soft bristle toothbrush. You may also rinse with an antiseptic mouthwash such as Listerine if well tolerated. Return to the ER if you are having worsening symptoms despite following these instructions, especially if you develop fevers over 100.3 F. All discharge instructions reviewed with patient and/or family. Voiced understan aleena. Scripts Amoxicillin (Amoxicillin) 500 Mg Capsule 1000 MG PO BID, #40 CAP 0 Refills Prov: DARREN ESTEVEZ MD 07/05/22 Work/School Note: Work Release Form Date Seen in the Emergency Department: Jul 05, 2022 Return to Work: Jul 06, 2022 Restrictions: No Restrictions LISSETTE ZULUAGA Jul 05, 2022 11:48 DARREN ESTEVEZ MD Jul 05, 2022 12:46
[2022-07-05] MEDS ORDERED: LIDOCAINE 2% VISCOUS 15 ML UDC PO ONE (12:45)
[2022-07-05] MEDS ORDERED: AMOX500C2 PO (12:46)
[2022-07-05 13:05] VITALS: BP 116/80
== END 2022-07-05 13:07 | disposition home or self-care (01) ==
LOC: EDUNIT# 11:08 → ER 11:10
DX: S02.5XXA Fracture of tooth (traumatic), initial encounter for closed fracture (principal); K05.10 Chronic gingivitis, plaque induced; M27.69 Other endosseous dental implant failure; Z28.310 Unvaccinated for COVID-19; X58.XXXA Exposure to other specified factors, initial encounter
CPT/HCPCS: 99282

== ENCOUNTER 2023-01-08 14:45 | Emergency (ER) | payer MEDICAID ==
[~2023-01-08] VITALS: Ht 162.4 cm; Wt 85.7 kg
[~2023-01-08 14:45] MED LIST changes: +AMOX500C2 PO
--- NOTE | 2023-01-08 15:02 | ED Upper Extremity ---
General Chief Complaint: Laceration Stated Complaint: LT FINGER LACERATION Nursing Triage Note: PT AMB TO RM 3 WITH CC OF LEFT INDEX FINGER LAC. PT WAS CUTTING FROZEN MEAT FOR DINNER AND SLICED HER FINGER. Source: patient Exam Limitations: no limitations History of Present Illness Date Seen by Provider: Jan 08, 2023 Time Seen by Provider: 15:01 Initial Comments Patient is a 27-year-old female presents ED with a laceration to her left index finger. This occurred 30 minutes ago while cutting meat. She states the knife slipped causing a 1 cm laceration to the side of the left index finger. Bleeding slightly controlled with direct pressure. Normal active range of motion. Numbness and tingling distally. She is up-to-date her tetanus within the past 2 years. Denies fever, chills, nausea, vomiting, diarrhea. Allergies and Home Medications Allergies Coded Allergies: No Known Drug Allergies (Unverified , 11/21/18) Patient Home Medication List Home Medication List Reviewed: Yes Amoxicillin (Amoxicillin) 500 Mg Capsule, 1,000 MG PO BID Prescribed by: DARREN MENJIVAR on 07/05/22 1246 Ferrous Sulfate (Iron) 325 Mg Tablet, 325 MG PO, (Reported) Entered as Reported by: KALEN GARCIA on 08/27/18 2151 Ibuprofen (Ibu) 600 Mg Tablet, 600 MG PO Q6H Prescribed by: DODIE MIRANDA on 10/28/18 0743 Prednisone (Prednisone) 50 Mg Tab, 50 MG PO DAILY Prescribed by: SHAUNA MONTELONGO on 04/28/22 1357 Sulfamethoxazole/Trimethoprim (Bactrim Ds Tablet) 800 Mg-160 Mg Tablet, 1 EACH PO BID Prescribed by: SHAUNA MONTELONGO on 04/28/22 1357 Review of Systems Constitutional: No chills, No diaphoresis, No malaise EENTM: No ear pain, No blurred vision Respiratory: No cough Cardiovascular: No chest pain Gastrointestinal: No abdominal pain, No nausea, No vomiting Genitourinary: No decreased output, No discharge Musculoskeletal: No back pain; joint pain; No joint swelling Skin: change in color Past Sdrucyx-Zwblox-Gkgpil Hx Patient Social History Tobacco Use?: No Substance use?: No Alcohol Use?: No Immunizations Up To Date Tetanus Booster (TDap): Unknown PED Vaccines UTD: Yes Seasonal Allergies Seasonal Allergies: Yes Past Medical History Surgeries: Yes (EGD, BILAT KNEE SCOPES) Gallbladder, Orthopedic Respiratory: No Cardiac: No Neurological: No Reproductive Disorders: No 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 No Pertinent Family Hx Physical Exam Vital Signs Vital Signs - First Documented 01/08/23 14:53 Temp 36.5 Pulse 96 B/P (MAP) 133/103 (113) Pulse Ox 99 O2 Delivery Room Air Capillary Refill : Height, Weight, BMI Height: 5'4.00" Weight: 174lbs. 6.0oz. [id number]; 32.00 BMI Method:Stated General Appearance: WD/WN, no apparent distress HEENT: PERRL/EOMI, normal ENT inspection, TMs normal, pharynx normal Neck: non-tender, full range of motion, supple Cardiovascular: regular rate, rhythm, no edema, no gallop, no JVD Respiratory: chest non-tender, lungs clear, normal breath sounds, no respiratory distress Gastrointestinal: normal bowel sounds, non tender, soft, no organomegaly Back: normal inspection, no CVA tenderness Hand: Left, laceration (1 cm laceration to left index finger. No active bleeding. 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 nml as tested, no motor/sensory deficits, alert, normal mood/affect Procedures/Interventions Wound Location: Upper Extremities Other Wound Location left index finger Wound Length (cm): 1 Wound's Depth, Shape: superficial, sub Q Wound Explored: clean Irrigated w/ Saline (ccs): 200 Betadine Prep?: Yes Anesthesia: 1% Lidocaine Volume Anesthetic (ccs): 2 Suture: Ethlion Suture Size: 5-0 Number of Sutures: 3 Layer Closure?: 1 Sterile Dressing Applied?: Yes Progress/Results/Core Measures Results/Orders My Orders Orders - DRISS COWAN Lidocaine 1% Inj 20 Ml (Xylocaine 1% Inj (01/08/23 15:30) Lidocaine 1% Inj 20 Ml (Xylocaine 1% Inj (01/08/23 15:17) Medications Given in ED Current Medications Medications Dose Ordered Sig/Kiarra Route Start Time Stop Time Status Last Admin Dose Admin Lidocaine HCl 20 ml ONCE ONCE INJ 01/08/23 15:30 01/08/23 15:31 01/08/23 15:20 20 ML Vital Signs/I&O 01/08/23 14:53 Temp 36.5 Pulse 96 B/P (MAP) 133/103 (113) Pulse Ox 99 O2 Delivery Room Air Blood Pressure Mean: 113 Departure Communication (PCP) Patient with a 1 cm laceration to her left index finger. Neurovascular intact. Normal active range of motion. No tendon or muscular involvement. Mild bleeding. Direct pressure controlled bleeding. 3 Ethilon sutures were placed here in the ED without difficulties. days. Topical Neosporin twice a day. Chente tape with finger splint to help with healing and provide immobilization. She is up-to-date on her tetanus. Return back to ED if symptoms worsen such as redness, swelling, pain. Anti-inflammatories for pain. Return precaution were discussed Impression Primary Impression: Finger laceration Disposition: HOME, SELF-CARE Condition: Stable Departure-Patient Inst. Decision time for Depature: 15:32 Referrals: DODIE MIRANDA MD (PCP/Family) Primary Care Physician Patient Instructions: Laceration Repair With Stitches ED Add. Discharge Instructions: Remove sutures in 10 days. Chente tape with splint. Ice to help with swelling. Anti-inflammatories for pain. Return back to ED if symptoms worsen such as redness, swelling, pain. All discharge instructions reviewed with patient and/or family. Voiced understanding. Work/School Note: Work Release Form Date Seen in the Emergency Department: Jan 08, 2023 Return to Work: Jan 11, 2023 DRISS COWAN Jan 08, 2023 15:02
[2023-01-08] MEDS ORDERED: LIDOCAINE 1% INJ 20 ML VIAL ONE (15:17)
[2023-01-08] MEDS ORDERED: LIDOCAINE 1% INJ 20 ML VIAL INJ ONE (15:30)
[2023-01-08 15:48] VITALS: BP 131/70
== END 2023-01-08 15:48 | disposition home or self-care (01) ==
LOC: EDUNIT# 14:45 → ER 14:48
DX: S61.211A Laceration without foreign body of left index finger without damage to nail, initial encounter (principal); W26.0XXA Contact with knife, initial encounter; Y93.G9 Activity, other involving cooking and grilling
CPT/HCPCS: 12001

== ENCOUNTER 2023-03-30 20:24 | Emergency (ER) | payer MEDICAID ==
[~2023-03-30] VITALS: Ht 162.6 cm; Wt 84.0 kg
[2023-03-30] MEDS ORDERED: NS IV 1000 ML 1,000 ML IV STA (21:07)
[2023-03-30] MEDS ORDERED: PROCHLORPERAZINE 10 MG/2ML INJ (COMPAZINE) IV ONE (21:15)
[2023-03-30] MEDS ORDERED: diphenhydrAMINE 50 MG/ML INJ (BENADRYL) IVP ONE (21:15)
[2023-03-30] MEDS ORDERED: KETOROLAC 30 MG/ML VIAL IVP ONE (21:15)
--- NOTE | 2023-03-30 21:17 | ED Headache ---
General Chief Complaint: Head/Cervical Problems Stated Complaint: HEADACHE Nursing Triage Note: Pt presents with c/o migraine headache that will not go away. Pt reports she has headaches weekly, but they have gotten to where tylenol and a nap no longer takes care of them. Pt took tylenol at 0700 this morning. Source: patient Exam Limitations: no limitations (DRISS COWAN) History of Present Illness Date Seen by Provider: Mar 30, 2023 Time Seen by Provider: 21:14 Initial Comments Patient is a 27-year-old female presents ED with right sided head pain. Head pain started this morning around 615. Pain is described as pressure and has intensified throughout the day. Patient took Tylenol around 645 this morning without much improvement. Nausea with photophobia. Similar type headaches in the past. She reports frequent headaches throughout the week. Not currently on preventative medication for her migraines. She denies any vomiting, unilateral muscle weakness or sensory changes, facial droop, chest pain, shortness of breath or cough. Denies of the worst headache of her life. Not concern for . Denies any flulike symptoms (DRISS COWAN) Allergies and Home Medications Allergies Coded Allergies: No Known Drug Allergies (Unverified , 11/21/18) Patient Home Medication List Home Medication List Reviewed: Yes (DRISS COWAN) Amoxicillin (Amoxicillin) 500 Mg Capsule, 1,000 MG PO BID Prescribed by: DARREN MENJIVAR on 07/05/22 1246 Ferrous Sulfate (Iron) 325 Mg Tablet, 325 MG PO, (Reported) Entered as Reported by: KALEN GARCIA on 08/27/18 2151 Ibuprofen (Ibu) 600 Mg Tablet, 600 MG PO Q6H Prescribed by: DODIE MIRANDA on 10/28/18 0743 Prednisone (Prednisone) 50 Mg Tab, 50 MG PO DAILY Prescribed by: SHAUNA MONTELONGO on 04/28/22 1357 Sulfamethoxazole/Trimethoprim (Bactrim Ds Tablet) 800 Mg-160 Mg Tablet, 1 EACH PO BID Prescribed by: SHAUNA MONTELONGO on 04/28/22 1357 Review of Systems Review of Systems Constitutional: No chills, No diaphoresis, No dizziness, No fever Eyes: Denies Drainage, Denies Decreased Acuity Ears, Nose, Mouth, Throat: denies ear pain Respiratory: No cough, No dyspnea on exertion Cardiovascular: No chest pain Gastrointestinal: No abdominal pain, No diarrhea, No nausea Genitourinary: No decreased output, No discharge Musculoskeletal: No back pain, No joint pain, No joint swelling, No muscle pain, No muscle stiffness Skin: No change in color, No change in hair/nails Psychiatric/Neurological: Headache (DRISS COWAN) All Other Systems Reviewed Negative Unless Noted: Yes (DRISS COWAN) Past Czoykai-Ihxuod-Zyghup Hx Immunizations Up To Date Tetanus Booster (TDap): Unknown PED Vaccines UTD: Yes (DRISS COWAN) Seasonal Allergies Seasonal Allergies: Yes (DRISS COWAN) Past Medical History Surgeries: Yes (EGD, BILAT KNEE SCOPES) Gallbladder, Orthopedic Respiratory: No Cardiac: No Neurological: No Last Menstrual Period: Mar 30, 2023 Reproductive Disorders: No 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 No Pertinent Family Hx (DRISS COWAN) Physical Exam Vital Signs Vital Signs - First Documented 03/30/23 03/30/23 20:39 22:19 Temp 36.5 Pulse 82 Resp 16 B/P (MAP) 118/76 (90) Pulse Ox 98 (DARREN ESTEVEZ MD) Vital Signs Capillary Refill : Less Than 3 Seconds (DRISS COWAN) Height, Weight, BMI Height: 5'4.00" Weight: 174lbs. 6.0oz. 79.267106qw; 31.00 BMI Method:Stated General Appearance: WD/WN, no apparent distress HEENT: PERRL/EOMI, normal ENT inspection, TMs normal, pharynx normal Neck: non-tender, full range of motion, supple Cardiovascular: regular rate, rhythm, no edema, no gallop, no JVD Respiratory: chest non-tender, lungs clear, normal breath sounds, no respiratory distress, no accessory muscle use Gastrointestinal: normal bowel sounds, non tender, soft, no organomegaly Back: normal inspection, no CVA tenderness, no vertebral tenderness Extremities: normal range of motion, non-tender, normal inspection, no pedal edema [place] Nerves: normal hearing, normal speech, PERRL Coordination/Gait: normal finger to nose, normal gait Motor/Sensory: no motor deficit, no sensory deficit, no pronator drift Skin: normal color, warm/dry (DRISS COWAN) Procedures/Interventions Suture Size: 5-0 (DRISS COWAN) Progress/Results/Core Measures Results/Orders Medications Given in ED Current Medications Medications Dose Ordered Sig/Kiarra Route Start Time Stop Time Status Last Admin Dose Admin Diphenhydramine HCl 25 mg ONCE ONCE IVP 03/30/23 21:15 03/30/23 21:16 DC 03/30/23 21:30 25 MG Ketorolac Tromethamine 30 mg ONCE ONCE IVP 03/30/23 21:15 03/30/23 21:16 DC 03/30/23 21:30 30 MG Prochlorperazine Edisylate 10 mg ONCE ONCE IV 03/30/23 21:15 03/30/23 21:16 DC 03/30/23 21:31 10 MG (DARREN ESTEVEZ MD) Vital Signs/I&O 03/30/23 03/30/23 20:39 22:19 Temp 36.5 Pulse 82 82 Resp 16 16 B/P (MAP) 118/76 (90) 118/76 Pulse Ox 98 (DARREN ESTEVEZ MD) Blood Pressure Mean: 90 Departure Communication (PCP) Patient is a 27-year-old female who presents to ED with headache. History of migraines. States she has frequent migraines throughout the week. Today's head pain feels very similar. Located right temporal head. Photophobia with nausea. No unilateral weakness. Due to no neurological red flag findings imaging was held. No meningeal signs. Ordered a migraine cocktail with Benadryl, liter of fluid, Toradol, Compazine with improvement of her head pain. She was observed for an hour and a half. Patient feeling much better. Provided work note. If any worsening symptoms return back to ED. (DRISS COWAN) Impression Primary Impression: Migraine Disposition: 01 HOME, SELF-CARE Condition: Stable Departure-Patient Inst. Decision time for Depature: 22:15 (DRISS COWAN) Referrals: DODIE MIRANDA MD (PCP/Family) Primary Care Physician Patient Instructions: Migraines (DC) ATTENDING PHYSICIAN NOTE: I was physically present as attending physician in the emergency department during the care of this patient, but I was not directly involved in the decision making or delivery of care for this patient. (DARREN ESTEVEZ MD) DRISS COWAN Mar 30, 2023 21:17 DARREN ESTEVEZ MD Mar 31, 2023 04:45
[2023-03-30 22:19] VITALS: BP 118/76
== END 2023-03-30 22:19 | disposition home or self-care (01) ==
LOC: EDUNIT# 20:24 → ER 20:25
DX: G43.909 Migraine, unspecified, not intractable, without status migrainosus (principal); Z28.310 Unvaccinated for COVID-19

== ENCOUNTER → 2023-07-23 | Outpatient (CLI) | payer MEDICAID ==
--- NOTE | 2023-07-23 16:27 | Diagnostic Imaging Report ---
EXAMINATION: Ultrasound OB fetus, less than 14 weeks, 07/23/2023. TECHNIQUE: Multiple real-time grayscale images were obtained over the gravid uterus in various projections. INDICATION: screening. dating. FINDINGS: There is a single live intrauterine gestation currently measuring 8 weeks 0 days by current sonogram. Heart rate is approximately 161 BPM. Yolk sac noted. Uterus is 11.9 cm in length. Both ovaries are normal in size and appearance with bilateral vascularity noted. A dominant cystic area in the left ovary is 2.1 cm in greatest dimension, likely a corpus luteal cyst. There is no free fluid. No adnexal masses. IMPRESSION: 1. Single live intrauterine gestation currently measuring 8 weeks 0 days with an estimated date of delivery 03/03/2024. Follow-up for full survey recommended. 2. Likely corpus luteal cyst, left ovary. Dictated by: Dictated on workstation # [id number]
== END ==
LOC: RAD 13:46
PROVIDERS: ATTEND Family Medicine
DX: Z34.01 Encounter for supervision of normal first pregnancy, first trimester (principal); Z3A.08 8 weeks gestation of pregnancy
CPT/HCPCS: 76801

== ENCOUNTER 2023-08-15 06:39 | Inpatient (IN) | payer MEDICAID ==
[~2023-08-15] VITALS: Ht 162 cm; Wt 86.0 kg
--- NOTE | 2023-08-15 07:10 | ED GU-Female ---
General Chief Complaint: OB < 20 WEEKS Stated Complaint: POSS MISCARRIAGE 11 WKS PREG Nursing Triage Note: VAGINAL BLEEDING, REPORTS 11 WEEKS Source: patient Exam Limitations: no limitations History of Present Illness Date Seen by Provider: Aug 15, 2023 Time Seen by Provider: 07:10 Initial Comments Patient is a 28-year-old female G5, P4 approximately 12 weeks with a last menstrual cycle of May 30 and estimated due date of March 03, 2024 who presents to the emergency room with a chief complaint of vaginal spotting/bleeding onset last night. She states she woke up around 6:00 this morning, sudden onset of low back pain, cramping that she rates currently a "7 or 8" and a "gush of fluid" followed by fairly heavy bleeding with clots. She has had 4 prior normal pregnancies last delivery in 2020. She is currently taking vitamins. She follows with Dr. Miranda for care. Her last visit with him was earlier this month, scheduled follow-up second week of August. She has had no recent illnesses. She is not nauseated. She denies f john or chills, however her is currently sick with congestion, cough and subjective fevers. She denies dysuria, urgency or frequency. She believes that she is O- blood type. She did have 8-week transvaginal ultrasound that showed intrauterine . [id number] ultrasound here at the bedside shows no identifiable intrauterine . It appears that the uterus is full of blood. No defined gestational sac or pole. Timing/Duration: other (Last night) Severity/Quality: moderate, cramping Location: other (Low back) Radiation: none Activities at Onset: sleep Prior Genitourinary Problems: none Sexual [place] History: single partner Associated Symptoms: other (Mild suprapubic discomfort, low back pain, vaginal bleeding) Allergies and Home Medications Allergies Coded Allergies: No Known Drug Allergies (Unverified , 11/21/18) Patient Home Medication List Home Medication List Reviewed: Yes Discontinued Medications Amoxicillin (Amoxicillin) 500 Mg Capsule, 1,000 MG PO BID Discontinued Reason: No Longer Taking Prescribed by: DARREN MENJIVAR on 07/05/22 1246 Ferrous Sulfate (Iron) 325 Mg Tablet, 325 MG PO, (Reported) Discontinued Reason: No Longer Taking Entered as Reported by: KALEN GARCIA on 12/8/18 2151 Ibuprofen (Ibu) 600 Mg Tablet, 600 MG PO Q6H Discontinued Reason: No Longer Taking Prescribed by: DODIE MIRANDA on 10/28/18 0743 Prednisone (Prednisone) 50 Mg Tab, 50 MG PO DAILY Discontinued Reason: No Longer Taking Prescribed by: SHAUNA MONTELONGO on 04/28/22 1357 Sulfamethoxazole/Trimethoprim (Bactrim Ds Tablet) 800 Mg-160 Mg Tablet, 1 EACH PO BID Discontinued Reason: No Longer Taking Prescribed by: SHAUNA MONTELONGO on 04/28/22 1357 Review of Systems Review of Systems Constitutional: see HPI EENTM: no symptoms reported Respiratory: no symptoms reported Cardiovascular: no symptoms reported Gastrointestinal: abdominal pain Genitourinary: other (Vaginal bleeding with clots) : Yes Expected Date of Delivery: Mar 03, 2024 LMP: May 30, 2023 Musculoskeletal: back pain Skin: no symptoms reported Past Xyxciko-Myapvh-Dlewie Hx Patient Social History Tobacco Use?: No Substance use?: No Alcohol Use?: No Pt feels they are or have been: No Immunizations Up To Date Tetanus Booster (TDap): Unknown PED Vaccines UTD: Yes First/Initial COVID19 Vaccinat: NA Seasonal Allergies Seasonal Allergies: Yes Past Medical History Surgery/Hospitalization HX: CHOLECYSTECTOMY, BILATERAL KNEE ARTHROSCOPY, GUERRERO Surgeries: Yes (EGD, BILAT KNEE SCOPES) Gallbladder, Orthopedic Respiratory: No Cardiac: No Neurological: No Last Menstrual Period: May 30, 2023 Reproductive Disorders: No Female Reproductive Disorders: Denies 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 No Pertinent Family Hx Physical Exam Vital Signs Vital Signs - First Documented 08/15/23 06:50 Temp 36.3 Pulse 106 Resp 20 B/P (MAP) 113/93 (100) Pulse Ox 97 O2 Delivery Room Air Capillary Refill : Less Than 3 Seconds Height, Weight, BMI Height: 5'4.00" Weight: 174lbs. 6.0oz. [id number]; 32.00 BMI Method:Stated General Appearance: WD/WN, moderate distress (crying), obese HEENT: PERRL/EOMI Cardiovascular: regular rate, rhythm Respiratory: lungs clear, normal breath sounds, no respiratory distress, no accessory muscle use Gastrointestinal: soft, tenderness (mild suprapubic tenderness) Genital/Rectal: other (large amount of blood clot evacuated manually from the vaginal vault. Speculum exam reveal brisk vaginal bleeding - suction catheter removed an additional ~150ml blood; I was still unable to feel the cervical os; Uterus about 12week size and very firm ) Back: no CVA tenderness Extremities: normal range of motion, normal inspection Neurologic/Psychiatric: alert, oriented x 3, other (crying/emotional) Skin: normal color, warm/dry Procedures/Interventions Suture Size: 5-0 Progress/Results/Core Measures Suspected Sepsis SIRS Temperature: Pulse: 106 Respiratory Rate: 20 Laboratory Tests 08/15/23 07:28: White Blood Count 9.2 Blood Pressure 113 /93 Mean: 100 Laboratory Tests 08/15/23 07:28: Platelet Count 252 Results/Orders Lab Results Laboratory Tests Test 08/15/23 07:28 Range/Units White Blood Count 9.2 4.3-11.0 10^3/uL Red Blood Count 4.57 3.80-5.11 10^6/uL Hemoglobin 13.1 11.5-16.0 g/dL Hematocrit 40 35-52 % Mean Corpuscular Volume 88 80-99 fL Mean Corpuscular Hemoglobin 29 25-34 pg Mean Corpuscular Hemoglobin Concent 33 32-36 g/dL Red Cell Distribution Width 12.8 10.0-14.5 % Platelet Count 252 130-400 10^3/uL Mean Platelet Volume 10.4 9.0-12.2 fL Immature Granulocyte % (Auto) 0 % Neutrophils (%) (Auto) 74 42-75 % Lymphocytes (%) (Auto) 19 12-44 % Monocytes (%) (Auto) 5 0-12 % Eosinophils (%) (Auto) 1 0-10 % Basophils (%) (Auto) 1 0-10 % Neutrophils # (Auto) 6.8 1.8-7.8 10^3/uL Lymphocytes # (Auto) 1.7 1.0-4.0 10^3/uL Monocytes # (Auto) 0.5 0.0-1.0 10^3/uL Eosinophils # (Auto) 0.1 0.0-0.3 10^3/uL Basophils # (Auto) 0.1 0.0-0.1 10^3/uL Immature Granulocyte # (Auto) 0.0 0.0-0.1 10^3/uL Human Chorionic Gonadotropin, Quant 9385 H <5 MIU/ML My Orders Orders - DANIEL LOCO MD Ed Iv/Invasive Line Start (08/15/23 07:09) Cbc And Automated Diff (08/15/23 07:09) Hcg,Quantitative (08/15/23 07:09) Ua Culture If Indicated (08/15/23 07:09) Rho(D) Immune Globulin (Rho(D) Immune Gl (08/15/23 07:30) Ns Iv 1000 Ml (Ns Iv 1000 Ml) (08/15/23 08:15) Ketorolac Injection (Ketorolac Injection (08/15/23 09:00) Ketorolac Injection (Ketorolac Injection (08/15/23 09:01) Type And Screen (08/15/23 09:12) Medications Given in ED Current Medications Medications Dose Ordered Sig/Kiarra Route Start Time Stop Time Status Last Admin Dose Admin Ketorolac Tromethamine 15 mg ONCE ONCE IVP 08/15/23 09:00 08/15/23 09:01 DC 08/15/23 09:11 15 MG Rho Immune Globulin 300 mcg ONCE ONCE IM/IV 08/15/23 07:30 08/15/23 07:31 DC 08/15/23 07:44 300 MCG Vital Signs/I&O 08/15/23 06:50 Temp 36.3 Pulse 106 Resp 20 B/P (MAP) 113/93 (100) Pulse Ox 97 O2 Delivery Room Air Capillary Refill : Less Than 3 Seconds Blood Pressure Mean: 100 Progress Note #1: Time: 09:14 Progress Note After patient had her liter of IV fluids the nurse tech went into do her straight cath and noted quite a bit of heavy vaginal bleeding with clots at the vaginal vault. I was able to evacuate quite a large amount of blood clots manually from the vaginal vault. Decision was made to then go ahead and do a pelvic exam. I was unable to feel her cervix on exam, speculum was placed and approximately 200 of blood was suctioned from the vaginal canal. Bimanual exam was repeated, her uterus is approximately 12 weeks size I can feel the fundus just above the pubic symphysis. It is very hard/indurated. Still unable to palpate the cervix. I discussed the case with Dr. Barnes who is on for OB, we are calling the OR crew in for D&C. Progress Note #2: Time: 09:40 Progress Note Patient seen and evaluated by me. Evaluation today includes history and physical exam, CBC, type and screen, quantitative hCG. Pertinent physical exam findings well-developed well-nourished obese female mild distress, tearful. Vital signs are stable. She is not tachycardic or febrile. Abdomen mildly tender in the suprapubic region. Large amount of vaginal bleeding noted on pelvic exam with firm enlarged uterus approximately 12 weeks. I was unable to palpate the cervix. Approximately 200 to 250 cc of blood removed from the vaginal vault, large clots. Otherwise normal female external genitalia. [id number] ultrasound shows no identifiable gestational sac or pole. Differential diagnosis includes complete miscarriage versus incomplete Labs independently reviewed and interpreted by me. Her CBC is normal with a hemoglobin of 14. She is on review of the medical record B- blood type. Her quantitative hCG is 9385. She was given a dose of RhoGAM here in the emergency department. On attempt at straight cath for urinalysis the large amount of blood clot at the vaginal introitus was noticed by the nurse tech. I removed the blood, manually and with suction at that time. Suspect incomplete miscarriage at this time. Please see above note. Discussed with Dr. Barnes, OB on-call, patient will be taken to the OR for D&C. Departure Communication (Admissions) Time/Spoke to Admitting Phy: 09:[address] Mccray - OB; will take to OR for D&C Impression Primary Impression: Incomplete Disposition: ADMITTED INPATIENT Condition: Stable Admissions Decision to Admit Reason: Admit from ER (General) Decision to Admit/Date: Aug 15, 2023 Time/Decision to Admit Time: 09:16 Departure-Patient Inst. Referrals: DODIE MIRANDA MD (PCP/Family) Primary Care Physician DANIEL LOCO MD Aug 15, 2023 07:10
[2023-08-15] MEDS ORDERED: RHO(D) IMMUNE GLOBULIN 300 MCG/2 ML SYRINGE IM/IV ONE (07:30)
[2023-08-15 07:38] LABS: BASOPHILS # (AUTO) 0.1 10^3/uL (0.0-0.1); BASOPHILS % (AUTO) 1 % (0-10); EOSINOPHILS # (AUTO) 0.1 10^3/uL (0.0-0.3); EOSINOPHILS % (AUTO) 1 % (0-10); HEMATOCRIT 40 % (35-52); HEMOGLOBIN 13.1 g/dL (11.5-16.0); LYMPHOCYTES # (AUTO) 1.7 10^3/uL (1.0-4.0); LYMPHOCYTES % (AUTO) 19 % (12-44); MEAN CORPUSCULAR HEMOGLOBIN 29 pg (25-34); MEAN CORPUSCULAR HGB CONC 33 g/dL (32-36); MEAN CORPUSCULAR VOLUME 88 fL (80-99); MEAN PLATELET VOLUME 10.4 fL (9.0-12.2); MONOCYTES # (AUTO) 0.5 10^3/uL (0.0-1.0); MONOCYTES % (AUTO) 5 % (0-12); NEUTROPHILS # (AUTO) 6.8 10^3/uL (1.8-7.8); NEUTROPHILS % (AUTO) 74 % (42-75); PLATELET COUNT 252 10^3/uL (130-400); WHITE BLOOD COUNT 9.2 10^3/uL (4.3-11.0)
[2023-08-15] MEDS ORDERED: NS IV 1000 ML 1,000 ML IV SCH (08:15)
[2023-08-15] MEDS ORDERED: KETOROLAC INJ 15 MG/ML VIAL IVP ONE (09:00)
[2023-08-15] MEDS ORDERED: KETOROLAC INJ 15 MG/ML VIAL ONE (09:01)
[2023-08-15] MEDS ORDERED: DOXYCYCLINE INJECTION 100 MG in NS (IVPB) 100 ML 100 ML IV ONE (10:00)
[2023-08-15] MEDS ORDERED: ceFAZolin INJECTION 2,000 MG in NS (IVPB) 50 ML 50 ML IV ONE (10:00)
[2023-08-15] MEDS ORDERED: LACTATED RINGERS 1,000 ML 1,000 ML IV PRN ×2 (10:00→10:30)
[2023-08-15] MEDS ORDERED: SEVOFLURANE (ULTANE) 15 ML INHAL SOLN ONE ×2 (10:07→10:55)
[2023-08-15] MEDS ORDERED: ONDANSETRON INJECTION 4 MG/2 ML (SDV) ONE (10:07)
[2023-08-15] MEDS ORDERED: LIDOCAINE PF 2% 5 ML VIAL ONE (10:07)
[2023-08-15] MEDS ORDERED: proPOfol INJECTION 200 MG/20 ML VIAL IV ONE (10:07)
[2023-08-15] MEDS ORDERED: MIDAZOLAM INJ 2 MG/2 ML VIAL ONE (10:08)
[2023-08-15] MEDS ORDERED: fentaNYL INJECTION 100 MCG/2 ML VIAL ONE (10:08)
[2023-08-15] MEDS ORDERED: ACETAMINOPHEN 325 MG TABLET PO PRN (10:15)
[2023-08-15] MEDS ORDERED: ONDANSETRON INJECTION 4 MG/2 ML (SDV) IVP PRN ×2 (10:15→10:30)
[2023-08-15] MEDS ORDERED: LACTATED RINGERS 1,000 ML 1,000 ML IV SCH (10:15)
--- NOTE | 2023-08-15 10:15 | History & Physical-OB/GYN ---
History of Present Illness History of Present Illness Reason for visit/HPI Chief Complaint: 11 weeks, heavy vaginal bleeding HPI: EDC 03/03/24 @ 11 2/7 weeks based on 8 week US done 07/23/23 presents to ED with incomplete AB and heavy vaginal bleeding, approx. 200 ML blood and clots in vagina with significant amount of products of conception in uterine cavity, no viable IUP on bedside abdominal US by me. Patient admitted for urgent Suction D&C. She is blood type B Neg and received a dose of Rhogam in ED already today. Patient is hemodynamically stable. HCT 40% pre-op 2 hours ago. WBC 9.2, PLT 252K PMH: Neg PSH: Biltateral knee, laparascopic GB SHx: Negative for smoking/ETOH/Rx abuse/STI Meds: Neg Allergy: Keflex causing hives (given 04/2022 in clinic for spider bite), no other drug allergies REVIEW OF SYSTEMS: NEGATIVE EXCEPT FOR HPI (Negative for HEENT, CV, RESP, GI/, Skin, Endocrine) O: VSS/AF General: NAD CV RRR LCTAB Abdomen: soft, non-tender, no guarding, no uterine pain on palpation V/V: [employer] exam deferred until in OR MS/NM: non-contributory. Date of Admission Aug 15, 2023 at 09:56 Date Seen by a Provider: Aug 15, 2023 Time Seen by a Provider: 09:45 I consulted on this patient on 08/15/23 10:09 Attending Physician Admitting Physician Admitting Physician: Ciara Valdivia DO Attending Physician: Ciara Valdivia DO Consult Allergies and Home Medications Allergies Coded Allergies: No Known Drug Allergies (Unverified , 11/21/18) Patient Home Medication List Home Medication List Reviewed: Yes Discontinued Medications Amoxicillin (Amoxicillin) 500 Mg Capsule, 1,000 MG PO BID Discontinued Reason: No Longer Taking Prescribed by: DARREN MENJIVAR on 07/05/22 1246 Ferrous Sulfate (Iron) 325 Mg Tablet, 325 MG PO, (Reported) Discontinued Reason: No Longer Taking Entered as Reported by: KALEN GARCIA on 08/27/18 2151 Ibuprofen (Ibu) 600 Mg Tablet, 600 MG PO Q6H Discontinued Reason: No Longer Taking Prescribed by: DODIE MIRANDA on 10/28/18 0743 Prednisone (Prednisone) 50 Mg Tab, 50 MG PO DAILY Discontinued Reason: No Longer Taking Prescribed by: SHAUNA MONTELONGO on 04/28/22 1357 Sulfamethoxazole/Trimethoprim (Bactrim Ds Tablet) 800 Mg-160 Mg Tablet, 1 EACH PO BID Discontinued Reason: No Longer Taking Prescribed by: SHAUNA MONTELONGO on 04/28/22 1357 Past Ejyjxio-Degobt-Qmpyge Hx Patient Social History 2nd Hand Smoke Exposure: Yes Recent Hopitalizations: No Alcohol Use?: No Pt feels they are or have been: No Immunizations Up To Date Tetanus Booster (TDap): Unknown Pediatric: Yes Date of Influenza Vaccine: Jun 20, 2018 Seasonal Allergies Seasonal Allergies: Yes Surgeries Yes (EGD, BILAT KNEE SCOPES) Gallbladder, Orthopedic Respiratory No Cardiovascular No Neurological No Reproductive System Expected Date of Delivery: Mar 03, 2024 Last Menstrual Period: May 30, 2023 Hx Reproductive Disorders: No Sexually Transmitted Disease: No HIV/AIDS: No Female 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 Review of Systems Constitutional: no symptoms reported Physical Exam Physical Exam Vital Signs Vital Signs Date Time Temp Pulse Resp B/P (MAP) Pulse Ox O2 Delivery O2 Flow Rate FiO2 08/15/23 06:50 36.3 106 20 113/93 (100) 97 Room Air Capillary Refill : Less Than 3 Seconds Labs Laboratory Tests 08/15/23 07:28: White Blood Count 9.2, Red Blood Count 4.57, Hemoglobin 13.1, Hematocrit 40, Mean Corpuscular Volume 88, Mean Corpuscular Hemoglobin 29, Mean Corpuscular Hemoglobin Concent 33, Red Cell Distribution Width 12.8, Platelet Count 252, Mean Platelet Volume 10.4, Immature Granulocyte % (Auto) 0, Neutrophils (%) (Auto) 74, Lymphocytes (%) (Auto) 19, Monocytes (%) (Auto) 5, Eosinophils (%) (Auto) 1, Basophils (%) (Auto) 1, Neutrophils # (Auto) 6.8, Lymphocytes # (Auto) 1.7, Monocytes # (Auto) 0.5, Eosinophils # (Auto) 0.1, Basophils # (Auto) 0.1, Immature Granulocyte # (Auto) 0.0, Human Chorionic Gonadotropin, Quant 9385H Assessment/Plan Assessment and Plan # @ 11 2/7 weeks by 8 week US # Incomplete AB with retained products of conception in uterus on bedside US with heavy active bleeding, no viable IUP in uterus seen # Patient counseled and consented for emergent Suction D&C. OR crew already here and ANS service interviewing patient. Suction D&C procedure described in detail to patient to include risks of bleeding, infection, uterine perforation and patient voiced understanding. # RH NEGATIVE... already given Rhogam today # Hx of allergy to Keflex causing hives...pre-op ABX Doxy 200 mg IV # Suction D&C now followed by observation on [facility] floor post-op. # Will repeat CBC post-op...likely discharge later today if patient stable. # Patient understands condition and no questions or concerns voiced. RN in room during patient encounter. Admission Diagnosis 11 Weeks First Trimester Incomplete AB Heavy Vaginal Bleeding requiring surgery by Suction D&C Admission Status: Observation CIARA VALDIVIA DO Aug 15, 2023 10:15
[2023-08-15] MEDS ORDERED: morphine INJ 10 MG/ML 1ML (SYR OR VIAL) IVP ONE (10:30)
[2023-08-15] MEDS ORDERED: MEPERIDINE INJ 50 MG/ML VIAL IVP ONE (10:30)
[2023-08-15] MEDS ORDERED: fentaNYL INJECTION 100 MCG/2 ML VIAL IVP ONE (10:30)
[2023-08-15] MEDS ORDERED: METHYLERGONOVINE INJ 0.2 MG/ML AMP ONE (10:46)
[2023-08-15 11:10] VITALS: BP 105/64
[2023-08-15] MEDS ORDERED: PHENYLEPHRINE 100 MCG/ML 10 ML (ANESTHESIA) SYR ONE (11:15)
[2023-08-15 11:20] VITALS: BP 106/70
--- NOTE | 2023-08-15 11:21 | Operative Report ---
Operative Report Date of Procedure/Surgery Aug 15, 2023 Surgeon (s) CIARA VALDIVIA DO Beverage Manager (s): None Post-Operative Diagnosis 11 Weeks Incomplete AB Procedure Performed Suction D&C Anethetist: Terry Kilpatrick CRNA Description of Procedure Anesthesia Type: General Estimated blood loss (mL): 50 Specimen(s) collected/removed Products of Conception Packing: None Description of the Procedure Drains: None Fluids (ML): EBL: 50 Urine: None (not catheterized) Crystalloid: 250 Antibiotics: Doxycycline 200 mg IV Implants: None Consults: None Complications: None Condition: Stable Findings: Uterus anteverted on bimanual exam prior to start of surgery. No adnexal masses noted on bimanual. The uterus sounded 13 cm using cannula as a sound. Large amounts of tissue obtained during surgery. There was no bleeding from cervix at the end of the case. Description: The patient was counseled and consented for surgery both verbally and in writing. She was taken to the OR and underwent general anesthesia with an LMA without complication, placed in low lithotomy position and underwent vaginal prep. A surgical timeout was performed. A bivalved speculum was inserted into the vagina. The anterior lip of the cervix was grasped with a single tooth tenaculum with gentle traction applied. The cervix was already noted to be dilated. An 11 mm curved suction cannula was easily inserted into the uterine cavity and the machine tested with pressure in the green zone. Large amounts of products of conception were obtained on several passes with the cannula. The uterine cavilty was gently explored with a small curette and no tissue was noted. The suction cannula was inserted one last time with no further tissue obtained and no significant bleeding noted. All instruments were removed from the vagina. The patient was given Methergine 0.2 mg IM at the end of the case. She was taken out of lithotomy position and recovered from general anesthesia without complication and transferred to the recovery area in good condition. Findings of the Procedure As above. Allergies and Home Medications Allergies Coded Allergies: No Known Drug Allergies (Unverified , 11/21/18) Patient Home Medication List Home Medication List Reviewed: Yes Discontinued Medications Amoxicillin (Amoxicillin) 500 Mg Capsule, 1,000 MG PO BID Discontinued Reason: No Longer Taking Prescribed by: DARREN MENJIVAR on 07/05/22 1246 Ferrous Sulfate (Iron) 325 Mg Tablet, 325 MG PO, (Reported) Discontinued Reason: No Longer Taking Entered as Reported by: KALEN GARCIA on 08/27/18 2151 Ibuprofen (Ibu) 600 Mg Tablet, 600 MG PO Q6H Discontinued Reason: No Longer Taking Prescribed by: DODIE MIRANDA on 10/28/18 0743 Prednisone (Prednisone) 50 Mg Tab, 50 MG PO DAILY Discontinued Reason: No Longer Taking Prescribed by: SHAUNA MONTELONGO on 04/28/22 1357 Sulfamethoxazole/Trimethoprim (Bactrim Ds Tablet) 800 Mg-160 Mg Tablet, 1 EACH PO BID Discontinued Reason: No Longer Taking Prescribed by: SHAUNA MONTELONGO on 04/28/22 1357 CIARA VALDIVIA DO Aug 15, 2023 11:21
[2023-08-15 11:30] VITALS: BP 106/65
[2023-08-15 11:40] VITALS: BP 97/63
[2023-08-15 11:55] VITALS: BP 98/55
[2023-08-15 12:20] LABS: HEMATOCRIT 34 % (35-52); HEMOGLOBIN 11.1 g/dL (11.5-16.0); MEAN CORPUSCULAR HEMOGLOBIN 29 pg (25-34); MEAN CORPUSCULAR HGB CONC 32 g/dL (32-36); MEAN CORPUSCULAR VOLUME 89 fL (80-99); MEAN PLATELET VOLUME 10.5 fL (9.0-12.2); PLATELET COUNT 226 10^3/uL (130-400); WHITE BLOOD COUNT 9.9 10^3/uL (4.3-11.0)
--- NOTE | 2023-08-15 13:48 | Discharge Inst-Simple/Standard ---
Discharge Inst-Standard Reconcile Patient Problems Problems Reviewed?: Yes Patient Instructions/Follow Up Plan of Care/Instructions/FU: Verbal instructions given for vaginal rest x 3 weeks, avoid for at least 1 month. Follow up with your OB provider Dr. Treadwell in 2 weeks to review pathology report from D&C. Return to hospital for fevers/chills/heavy bleeding/severe uterine pain. Activity as Tolerated: Yes Discharge Diet: No Restrictions Health Concerns: N/A Return to The Hospital For: As above Other Inst to Patient As above. See printed D&C post-op instruction sheet also. Planned Outpatient Orders/Ref. N/A CIARA VALDIVIA DO Aug 15, 2023 13:48
--- NOTE | 2023-08-15 13:59 | Short Stay Summary ---
Discharge Summary Hospital Course Was the Problem List Reviewed?: Yes Final Diagnosis: 11 Weeks, 1stTrimester Incomplete SAB, Heavy Bleed Hospital Course Date of Admission: Aug 15, 2023 at 09:56 Admission Diagnosis : Family Physician/Provider: Enrrique Aviles MD Date of Discharge: 08/15/23 Discharge Diagnosis: 11 Weeks, Incomplete SAB, Heavy Vaginal Bleeding requiring surgery Hospital Course: The patient is a at 11 2/7 weeks by 8 week US with an incomplete SAB seen in ED with retained products of conception on bedside US in ED by me. No fetus noted on ultrasound. She was taken to OR and underwent uncomplicated Suction D&C with large amounts of products of conception removed. EBL from surgery 50 ML. HCT pre-op 40%. HCT post-op 34%. Patient did well post-op with no further significant bleeding and is discharged home same day as D&C. She is RH NEG and was given Rhogam in ED just prior to D&C. She will keep her regularly scheduled follow up appointment with her OB provider Dr. Treadwell in 2 weeks to review pathology and see how she is doing. Verbal and written D&C post-op instructions given. Patient going home later today after ambulating, tolerating diet and voiding. She has motrin and APAP at home and declines discharge meds. Labs and Pending Lab Test: Laboratory Tests 08/15/23 07:28: White Blood Count 9.2, Red Blood Count 4.57, Hemoglobin 13.1, Hematocrit 40, Mean Corpuscular Volume 88, Mean Corpuscular Hemoglobin 29, Mean Corpuscular Hem oglobin Concent 33, Red Cell Distribution Width 12.8, Platelet Count 252, Mean Platelet Volume 10.4, Immature Granulocyte % (Auto) 0, Neutrophils (%) (Auto) 74, Lymphocytes (%) (Auto) 19, Monocytes (%) (Auto) 5, Eosinophils (%) (Auto) 1, Basophils (%) (Auto) 1, Neutrophils # (Auto) 6.8, Lymphocytes # (Auto) 1.7, Monocytes # (Auto) 0.5, Eosinophils # (Auto) 0.1, Basophils # (Auto) 0.1, Immature Granulocyte # (Auto) 0.0, Human Chorionic Gonadotropin, Quant 9385H 08/15/23 12:15: White Blood Count 9.9, Red Blood Count 3.87, Hemoglobin 11.1L, Hematocrit 34L, Mean Corpuscular Volume 89, Mean Corpuscular Hemoglobin 29, Mean Corpuscular Hemoglobin Concent 32, Red Cell Distribution Width 13.0, Platelet Count 226, Mean Platelet Volume 10.5 Home Meds Active Assessment/Pt Instructions 11 weeks Incomplete SAB, post-op Suction D&C doing well Plan to discharge home after patient voids, ambulates and tolerates p.o food. Follow up with your Dr. Treadwell in 2 weeks as scheduled to review pathology from D&C and regular follow up. Discharge Instructions Discharge Diet: No Restrictions Activity as Tolerated: Yes Discharge Physical Examination General Appearance: Alert, Oriented X3 Abdominal: No Tenderness Extremities: No Tenderness/Swelling Allergies: Coded Allergies: No Known Drug Allergies (Unverified , 11/21/18) Discharge Summary Date of Admission Aug 15, 2023 at 09:56 Date of Discharge 08/15/23 Discharge Date: Aug 15, 2023 Discharge Time: 14:00 Admission Diagnosis 11 Weeks Incomplete SAB Heavy Vaginal Bleeding requiring surgery Post-op Suction D&C Consults/Procedures Consulations None Procedures General Anesthesia Suction D&C Discharge Diagnosis 11 weeks First Trimester Incomplete SAB Heavy Vaginal Bleeding requiring surgery Post-op Suction D&C CIARA VALDIVIA DO Aug 15, 2023 13:56
[2023-08-15] MEDS ORDERED: IBUPROFEN 800 MG TABLET PO SCH (14:00)
--- NOTE | 2023-08-16 08:44 | Anesthesia-General Post-Op ---
General Patient Condition Mental Status/LOC: Same as Preop Cardiovascular: Satisfactory Nausea/Vomiting: Absent Respiratory: Satisfactory Pain: Controlled Complications: Absent Post Op Complications Complications None Follow Up Care/Instructions Patient Instructions None needed. Anesthesia/Patient Condition Patient Condition Patient is doing well, no complaints, stable vital signs, no apparent adverse anesthesia problems. No complications reported per nursing. KEVIN LEWIS CRNA Aug 16, 2023 08:44
== END 2023-08-15 16:00 | disposition home or self-care (01) | DRG 770 ==
LOC: EDUNIT# 06:39 → ER 06:42 → WS 09:56
PROVIDERS: ADMIT Obstetrics & Gynecology; ATTEND Obstetrics & Gynecology
PROC: 10D17ZZ Extraction of Products of Conception, Retained, Via Natural or Artificial Opening (ICD-10-PCS; principal; 2023-08-15 10:19)
DX: O03.4 Incomplete spontaneous abortion without complication (principal); O03.1 Delayed or excessive hemorrhage following incomplete spontaneous abortion
CPT/HCPCS: 36415; 84702; 85025; 85027; 86850; 86870; 86900; 86901; 96372